=== PATIENT | female | born 1940 | race Caucasian/White ===

== ENCOUNTER 2021-02-03 13:27 | Inpatient (IN) | payer MEDICARE, SELFPAY ==
[2021-02-03] VITALS (22 sets, daily range): BP systolic 114–141; BP diastolic 62–77; PULSE 88–98; RESP 15–21; TEMP 37.3; O2SAT 90–96; BMI 23.8
--- NOTE | ~2021-02-03 | XR_ITS ---
MODIFIED ESOPHAGRAM HISTORY: Aspiration pneumonia TECHNIQUE: Modified barium esophagram was performed by speech pathologist under radiologist fluorosco pic guidance. This was recorded on tape. The exam was reviewed on 02/04/2021 11:02 OPTICAL MANAGER. The DAP fo r this procedure was 2 Gycm2. Fluoroscopy time is 4.1 minutes. One fluoroscopic image. FINDINGS: Lateral projection of the cervical spine demonstrates normal alignment. There is reduced lingual movement during oral stage. During pharyngeal stage there is reduced laryngeal elevation, add uction, tongue base retraction and pharyngeal squeeze. There is vallecular and piriform sinus residue . There is laryngeal penetration without aspiration.. IMPRESSION: 1: Laryngeal penetration without aspiration. 2: Please refer to speech pathologist report for additional detail. Reviewed, dictated and finalized at location A. CAL MANAGER
--- NOTE | ~2021-02-03 | CT_ITS ---
EXAMINATION: CT abdomen pelvis wo con DATE: 02/03/2021 14:43 INDICATION: Mild localized abdominal pain. Vomiting. TECHNIQUE: Computed tomography (CT) of the abdomen and pelvis was performed without intravenous contr ast. Automated exposure control and iterative reconstruction technique were employed. Exam dose: 564 .74 mGy-cm total exam DLP. COMPARISON: None. FINDINGS: There is patchy infiltrate in the middle and to a greater extent right lower lobe. Consider pneumonia and aspiration pneumonitis. There is a prominent band of discoid atelectasis or scarring in the right lower lobe. Cardiac pacemaker leads are noted. No pericardial or pleural effusion. Status post cholecystectomy. No hepatic, splenic, pancreatic or adrenal space-occupying mass lesion is evident. No bile duct or pa ncreatic duct dilatation. 3.8 cm exophytic left renal cyst. Small right parapelvic renal cysts. Bilateral diffuse renal atrophy . No urinary tract calculus or hydroureteronephrosis. There is calcification of the abdominal aorta. Proximal left renal artery stent. No abdominal aortic aneurysm. Prominent calcification of the iliac arteries. No intraperitoneal or retroperitoneal or pelvic mass lesion or adenopathy or ascites. The urinary bladder is unremarkable. Status post hysterectomy. Small sliding hiatal hernia. There are numerous diverticula of the colon involving predominantly the sigmoid colon. No CT evidence of diverticulitis. No bowel obstruction or intraperitoneal free air. There is diffuse osteopenia. IMPRESSION: Patchy infiltrate in middle and right lower lobe; consider pneumonia and aspiration pneu monitis Cardiac pacemaker leads Status post cholecystectomy Status post hysterectomy Renal cysts Left renal artery stent Small sliding hiatal hernia Diverticulosis of the colon; no CT evidence of diverticulitis Reviewed, dictated and finalized at Location A. Reviewed, dictated and finalized at location B. CTOR RECORDS MANAGEMENT IMPRESSION: Patchy infiltrate in middle and right lower lobe; consider pneumon ia and aspiration pneumonitis Cardiac pacemaker leads Status post cholecystectomy Status post hysterectomy Renal cysts Left renal artery stent Small sliding hiatal hernia Diverticulosis of the colon; no CT evidence of diverticulitis
--- NOTE | ~2021-02-03 | XR_ITS ---
XR chest 1V portable 02/03/2021 16:36 Indication: Aspiration pneumonia. Vomiting. Procedure: AP portable chest Comparison: No prior studies for comparison. Findings: Patchy right basilar airspace disease, compatible with pneumonia. Heart size is normal. The re are coronary artery stents. Pacemaker leads in expected position. No pleural effusion, edema or pn eumothorax. Generalized osteopenia. Impression: 1: Patchy right basilar airspace disease, compatible with pneumonia. Reviewed, dictated and finalized at location A. TION MANAGER Impression: 1: Patchy right basilar airspace disease, compatible with pneumonia.
[2021-02-03 14:00] LABS: Hematocrit 35.7 % (37.0-47.0); Hemoglobin 11.2 g/dL (12.0-15.0); Mean Corpuscular HGB Conc 31.4 g/dl (32-36); Mean Corpuscular Hemoglobin 29.5 pg (26-34); Mean Corpuscular Volume 93.9 fl (80-100); Mean Platelet Volume 9.4 fl (7.4-10.4); Platelet Count Result 218 k/mm3 (150-375); Red Cell Distribution Width 15.2 % (11.5-14.5)
[2021-02-03 14:16] LABS: Alanine Aminotransferase 25 U/L (4-35); Albumin Level 4.6 g/dL (3.5-5.1); Alkaline Phosphatase 110 U/L (38-126); Anion Gap 12 mmol/L (8-16); Aspartate Amino Transferase 32 U/L (14-36); Blood Urea Nitrogen 28 mg/dL (7-17); Calcium 9.7 mg/dL (8.4-10.2); Carbon Dioxide 20 mmol/L (22-30); Chloride 101 mmol/L (98-107); Estimated CRCL calculation 24 ml/min; Estimated Glomerular Filt Rate 27; Glucose 100 mg/dL (65-110); Lipase 170 U/L (23-300); Potassium 4.7 mmol/L (3.4-5.0); Sodium 133 mmol/L (137-145)
[2021-02-03 15:07] LABS: Anisocytosis 2+ (NORMAL); Band Neutrophils Percent 4 % (0-6); Hypochromasia 1+ (NORMAL); Lymphocytes Absolute Manual 0.17 K/mm3 (1.1-4.5); Monocytes Absolute Manual 0.68 K/mm3 (0.1-0.90); Monocytes Percent Manual 4 % (3-9); Neutrophils Absolute Manual 16.15 K/mm3 (1.7-7.2); Neutrophils Percent Manual 91 % (46-73); Platelet Estimate Adequate (Adequate); Total Cells Counted 100
[2021-02-03] MEDS: SODIUM CHLORIDE 0.9% IV 1,000 ML 999 ML IV CONT (15:15)
[2021-02-03 16:05] LABS: Add Urine Microscopic? YES; Appearance Urine Clear (Clear); Bacteria Urine Trace /hpf; Bilirubin Urine Negative (Negative); Blood Urine Negative (Negative); Color Urine Yellow (Yellow); Glucose Urine UA Negative (Negative); Ketones Urine Trace mg/dL (Negative); Leukocyte Esterase Ur Negative LEU/UL (Negative); Mucus Urine Rare /lpf; Nitrate Urine Negative (Negative); Protein Urine Negative (Negative); RBC Urine 0-2 /hpf (0-2); Specific Grav Ur 1.017 (1.001-1.035); Urobilinogen Urine Negative mg/dL (<2.0); WBC Urine 0-3 /hpf
[2021-02-03] MEDS: ONDANSETRON INJ 4 MG/2 ML VIAL IV PUSH (16:15)
--- NOTE | 2021-02-03 16:24 | ED.NAVMDI ---
HPI - Nausea/Vomiting/Diarrhea General Chief complaint: Nausea/Vomiting/Diarrhea Stated complaint: N/V, ALERT TO SELF Time Seen by Provider: 02/03/21 13:38 History of Present Illness HPI Narrative: Patient is a 80-year-old female with history of aphasia who presents ER with nausea and vomiting. Vomiting began today. Patient is also been having drops her blood sugars over the last week. It appears patient was recently started on glimepiride 4 mg but it was decreased to 2 mg couple days ago. Blood sugar as low as 30. Patient unable to provide history and it was obtained from family who is present and from EMS. Related Data Home Medications Medication Instructions Recorded Confirmed acetaminophen 650 mg PO QID PRN 02/03/21 02/03/21 albuterol sulfate 5 mg INHALATION Q4H PRN 02/03/21 02/03/21 amlodipine 5 mg PO DAILY 02/03/21 02/03/21 aspirin [Adult Aspirin EC Low 81 mg PO DAILY 02/03/21 02/03/21 Strength] calcitriol 0.25 mcg PO 3XW 02/03/21 02/03/21 clopidogrel 75 mg PO DAILY 02/03/21 02/03/21 ezetimibe 10 mg PO DAILY 02/03/21 02/03/21 fluticasone propion-salmeterol 1 inh INHALATION DAILY 02/03/21 02/03/21 furosemide 20 mg PO DAILY 02/03/21 02/03/21 lidocaine [Lidoderm] 1 patch TOPICAL DAILY 02/03/21 02/03/21 polyethylene glycol 3350 [Miralax] 17 g PO BID 02/03/21 02/03/21 sennosides [Senna Lax] 17.2 mg PO DAILY 02/03/21 02/03/21 glimepiride 2 mg PO DAILY 02/04/21 02/04/21 Allergies Allergy/AdvReac Type Severity Reaction Status Date / Time codeine Allergy Unknown Verified 02/03/21 13:37 hydrocodone Allergy Unknown Verified 02/03/21 13:37 morphine Allergy Unknown Verified 02/03/21 13:37 [id number] Reductase Allergy Unknown Verified 02/03/21 13:37 Inhibitor Review of Systems Review of Systems: ROS unobtainable: Yes unobtainable due to medical condition [facility] Past Medical History Medical History (Updated 02/04/21 @ 16:23 by Robert Laguna MD) Anemia CAD (coronary artery disease) Cardiac defibrillator in place Chronic kidney disease Compression fx, thoracic spine Congestive heart failure DM2 (diabetes mellitus, type 2) Hyperlipidemia Hypertension Surgical History Surgical History (Updated 02/03/21 @ 22:24 by Connie Quintana NP) H/O heart artery stent Family History Family History (Updated 02/03/21 @ 22:25 by Connie Quintana NP) Unknown Unknown family medical history Social History Social History (Updated 02/03/21 @ 22:26 by Connie Quintana NP) Social History: according to the patient's face sheet she is retired. She has 2 daughters listed under her contacts. She is from [place] [facility]. Patient is listed as a full code. Smoking status: Never smoker Alcohol intake: never Substance use: never Spiritual care concerns: No Exam Narrative: GENERAL: Chronically ill-appearing, well-nourished, and in no acute distress. HEAD: Normocephalic, atraumatic. ENT: Mucous membranes moist. Neck: Supple. CHEST: Clear to auscultation. No respiratory distress. HEART: Regular rate and rhythm. Normal peripheral pulses. ABDOMEN: Soft, moderate lower abdominal tenderness bilaterally, nondistended, normal active bowel sounds. EXTREMITIES: Normal range of motion. No edema. SKIN: Warm, dry, no rash. NEURO: Awake and alert, follows commands, attempts to communicate but has expressive aphasia. Course Course Emergency Course: Admit to hospitalist service. Antibiotics for aspiration pneumonia ordered. Vital Signs Vital signs: Vital Signs Pulse Rate 98 02/03/21 13:30 Respiratory Rate 18 02/03/21 13:30 Blood Pressure 141/77 H 02/03/21 13:30 Pulse Oximetry 95 02/03/21 13:30 Temperature 96.8 F L 02/04/21 14:28 Pulse Rate 83 02/04/21 14:28 Respiratory Rate 20 02/04/21 14:28 Blood Pressure 133/58 L 02/04/21 14:28 Pulse Oximetry 95 02/04/21 14:28 MDM - Nausea/Vomiting/Diarrhea Lab Data Result diagrams: 02/04/21 14:10
--- NOTE | 2021-02-03 17:00 | PC.NURSE ---
pts daughter voicing concerns that pt has been having blood sugar drops at the [facility] and that it is unusual since shes been off her diabetic meds for years. upon looking at [facility] paper noted that pt has been receiving glimiperide 4mg daily until today and as of today dose has been decreased to glimiperide 2mg daily. per family pts dr is dr kenyon. meds ordered by dr. foster. concerned about potential med error discussed with dr. wang
[2021-02-03] MEDS: AMPICILLIN SULB 3 GM/NS 100 ML 3 GM/100 ML VIAL IVPB (17:18)
--- NOTE | 2021-02-03 17:30 | PC.NURSE ---
pts daughter left department. made aware of plan of care
--- NOTE | 2021-02-03 21:33 | PC.NURSE ---
This patient, Emely Candelario, was admitted to Medical Room 345-01. Patient/family oriented to hospital policies and general routines including ID bracelet, bed and alarms, visiting hours, pain management, procedures, bathroom and other care routines, personal items, smoking policy, room service/diet, and visiting hours. Information on how to activate the Rapid Response Team has been discussed. Patient/Family are encouraged to report perceived risks to care and to ask questions if they do not understand what they are told or what they should do. Spoke with daughter to gather information for admission.
--- NOTE | 2021-02-03 21:53 | PM.IMHP ---
H&P: HPI History of Present Illness Date/Time: 02/03/21 21:53Joselyn is a 80-year-old female patient who comes from the group home. She has a history of diabetes and it was reported that the patient's blood sugars were low. According the family the patient had not been on glimepiride prior to going in the group home. The patient is aphasic and answers yes and no. The patient was more lethargic today and was brought to the emergency room. Her white count was noted to be 17.0. H&H 11.2 and 35.7. Her chest x-ray was read as patchy right basilar airspace disease compatible with pneumonia. It was felt that the patient has aspiration pneumonia. She was started on Unasyn. Abdominal pelvis CT was read as the following: Patchy infiltrate in middle and right lower lobe; consider pneumonia and aspiration pneumonitis Cardiac pacemaker leads Status post cholecystectomy Status post hysterectomy Renal cysts Left renal artery stent Small sliding hiatal hernia Diverticulosis of the colon; no CT evidence of diverticulitis sodium was 133, creatinine 1.8 and her blood sugar was noted to be 100. she was also started on IV fluids and Zofran. The patient is being admitted to observation status on the date of service of 02/03/2021. Chief Complaint: Low blood sugar Review of Systems Review of Systems: ROS unobtainable: Yes unobtainable due to mental status PMFSH Past Medical History Medical History (Updated 02/03/21 @ 22:31 by Connie Quintana NP) Anemia CAD (coronary artery disease) Cardiac defibrillator in place Chronic kidney disease Compression fx, thoracic spine Congestive heart failure DM2 (diabetes mellitus, type 2) Hyperlipidemia Hypertension Surgical History Surgical History (Updated 02/03/21 @ 22:24 by Connie Quintana NP) H/O heart artery stent Family History Family History (Updated 02/03/21 @ 22:25 by Connie Quintana NP) Unknown Unknown family medical history Social History Social History (Updated 02/03/21 @ 22:26 by Connie Quintana NP) Social History: according to the patient's face sheet she is retired. She has 2 daughters listed under her contacts. She is from [facility]. Patient is listed as a full code. Smoking status: Never smoker Alcohol intake: never Substance use: never Spiritual care concerns: No Meds Home Medications and Allergies Home Medications Medication Instructions Recorded Confirmed Type acetaminophen 650 mg PO QID PRN 02/03/21 02/03/21 History albuterol sulfate 5 mg INHALATION Q4H PRN 02/03/21 02/03/21 History amlodipine 5 mg PO DAILY 02/03/21 02/03/21 History aspirin [Adult Aspirin EC Low 81 mg PO DAILY 02/03/21 02/03/21 History Strength] calcitriol 0.25 mcg PO 3XW 02/03/21 02/03/21 History clopidogrel 75 mg PO DAILY 02/03/21 02/03/21 History ezetimibe 10 mg PO DAILY 02/03/21 02/03/21 History fluticasone propion-salmeterol 1 inh INHALATION DAILY 02/03/21 02/03/21 History furosemide 20 mg PO DAILY 02/03/21 02/03/21 History lidocaine [Lidoderm] 1 patch TOPICAL DAILY 02/03/21 02/03/21 History polyethylene glycol 3350 [Miralax] 17 g PO BID 02/03/21 02/03/21 History sennosides [Senna Lax] 17.2 mg PO DAILY 02/03/21 02/03/21 History Allergies Allergy/AdvReac Type Severity Reaction Status Date / Time codeine Allergy Unknown Verified 02/03/21 13:37 hydrocodone Allergy Unknown Verified 02/03/21 13:37 morphine Allergy Unknown Verified 02/03/21 13:37 [id number]-JyN Reductase Allergy Unknown Verified 02/03/21 13:37 Inhibitor Vital Signs Vital Signs - 24 hr 02/03/21 13:30 02/03/21 15:15 02/03/21 16:15 Temperature Pulse Rate 98 93 89 Respiratory Rate 18 19 17 Blood Pressure 141/77 H 130/66 126/70 Pulse Oximetry 95 93 95 02/03/21 17:18 02/03/21 17:30 02/03/21 17:31 Temperature Pulse Rate 91 91 90 Respiratory Rate 18 15 16 Blood Pressure 120/74 Pulse Oximetry 92 93 93 02/03/21 17:45 02/03/21 17:46
--- NOTE | 2021-02-04 | ECHO_ITS ---
Patient Info Name: Emely Candelario Age: 80 years : 1940 Gender: Female Ht: 60 in Wt: 122 lbs BSA: 1.54 m2 HR: 84 bpm BP: 150 / 71 mmHg Heart Rhythm: Sinus Rhythm, Indeterminant Technical Quality: Fair Exam Date: 02/04/2021 8:42 AM Exam Location: [facility] Patient Status: Inpatient Admit Date: 02/04/2021 Staff Ordering Physician: Connie Quintana NP Environmental Studies Faculty Member: Wilda Lindsey RDCS Attending Provider: Deya Bejarano PA-C Referring Physician: MESERET KRISHNAN ; Exam Type: CA echo doppler color flow Study Info Indications - murmur Complete two-dimensional, color flow and Doppler transthoracic echocardiogram is performed. Summary 1. Complete two-dimensional, color flow and Doppler transthoracic echocardiogram is performed. 2. Moderate left ventricular enlargement with normal left ventricular wall thickness. There was moderate global hypokinesis with more severe inferior basal hypokinesis. The visual ejection fraction is 35-40%. Grade 2 diastolic dysfunction is present. Abnormal septal motion noted perhaps secondary to a bundle branch block. 3. Left atrial chamber dimension is mildly enlarged. 4. There is trace mitral valve regurgitation. 5. There is mild tricuspid valve regurgitation. 6. Moderate pulmonary hypertension, estimated pulmonary arterial systolic pressure is 48 mmHg. 7. Rhythm indeterminate. Left Ventricle Left ventricular chamber dimension is moderately enlarged. Left ventricular systolic function is moderately reduced, estimated at 35-40%. There is no increased left ventricular wall thickness. Left ventricular septal wall motion is normal. The left ventricular diastolic function is grade II diastolic dysfunction. Right Ventricle Right ventricular chamber dimension is normal. Right ventricular systolic function is normal. Left Atria Left atrial chamber dimension is mildly enlarged. Right Atria Right atrial chamber dimension is normal. Aortic Valve The aortic valve is trileaflet. There is no aortic valve sclerosis. There is no aortic valve stenosis. There is no aortic valve regurgitation. Pulmonic Valve The pulmonic valve is normal. There is no pulmonic valve stenosis. There is no pulmonic regurgitation. Mitral Valve The mitral valve has normal leaflets. There is no mitral valve stenosis. There is trace mitral valve regurgitation. Tricuspid Valve The tricuspid valve leaflets are normal. There is no significant tricuspid valve stenosis. There is mild tricuspid valve regurgitation. Moderate pulmonary hypertension, estimated pulmonary arterial systolic pressure is 48 mmHg. Pericardium/Pleural The pericardium appears normal. There is no pericardial effusion. Inferior Vena Cava Normal inferior vena cava with >50% collapse upon inspiration consistent with Empty right atrial pressure, 10 mmHg. Aorta The aortic root size at the sinus of Valsalva is normal. The prox ascending aorta size is normal. Left Ventricular Outflow Tract Name Value Normal LVOT 2D LVOT Diameter 2.2 cm LVOT Doppler LVOT Peak Gradient 5 mmH
[2021-02-04] MEDS: AMPICILLIN SULB 3 GM/NS 100 ML 3 GM/100 ML VIAL IVPB ×2 (05:13→17:12)
[2021-02-04] MEDS: DEXTROSE 50% 25 GM/50 ML SYRINGE IV PUSH (05:13)
[2021-02-04 05:43] LABS: Basophils Percent Auto 0.1 % (0.2-1.2); Eosinophils Percent Auto 0.1 % (0-4.4); Hematocrit 27.1 % (37.0-47.0); Hemoglobin 8.3 g/dL (12.0-15.0); Immature Granulocyte Absolute 0.11 K/mm3 (0.00-0.031); Immature Granulocyte Percent A 0.8 % (0-0.5); Lymphocytes Absolute Auto 0.46 K/mm3 (0.9-3.2); Lymphocytes Percent Auto 3.5 % (18.3-44.2); Mean Corpuscular HGB Conc 30.6 g/dl (32-36); Mean Corpuscular Volume 94.8 fl (80-100); Mean Platelet Volume 9.2 fl (7.4-10.4); Monocytes Absolute Auto 0.6 K/mm3 (0.1-0.6); Monocytes Percent Auto 4.2 % (2.6-8.5); Neutrophils Absolute Auto 12.1 K/mm3 (1.3-6.7); Neutrophils Percent Auto 91.3 % (45.5-73.1); Platelet Count Result 191 k/mm3 (150-375); Red Blood Count 2.86 M/mm3 (4.2-5.4); Red Cell Distribution Width 15.4 % (11.5-14.5); White Blood Count 13.2 K/mm3 (4.5-10.0)
[2021-02-04 05:46] LABS: Glucose Point of Care < 20 mg/dl (65-105)
[2021-02-04 05:46] LABS: Glucose Point of Care 181 mg/dl (65-105)
[2021-02-04 05:53] LABS: Hemoglobin A1C 5.1 % (<5.7)
[2021-02-04 06:00] VITALS: BP 150/71; PULSE 84; RESP 18; TEMP 36.6; O2SAT 97
[2021-02-04 06:00] LABS: Alanine Aminotransferase 17 U/L (4-35); Albumin Level 3.2 g/dL (3.5-5.1); Alkaline Phosphatase 74 U/L (38-126); Anion Gap 8 mmol/L (8-16); Aspartate Amino Transferase 23 U/L (14-36); Bilirubin,Total 0.6 mg/dL (0.2-1.3); Blood Urea Nitrogen 28 mg/dL (7-17); CRP 6.2 mg/dL (<1.0); Calcium 8.7 mg/dL (8.4-10.2); Carbon Dioxide 24 mmol/L (22-30); Chloride 101 mmol/L (98-107); Estimated CRCL calculation 15 ml/min; Estimated Glomerular Filt Rate 24; Glucose 221 mg/dL (65-110); Lactate Dehydrogenase 426 U/L (313-618); Magnesium 2.2 mg/dL (1.6-2.3); Potassium 4.1 mmol/L (3.4-5.0); Sodium 133 mmol/L (137-145)
[2021-02-04] MEDS: DEXTROSE 5%/0.45% SOD CHL 1,000 ML 50 ML IV CONT (06:04)
[2021-02-04 07:14] LABS: Hypochromasia 2+ (NORMAL); Platelet Estimate Adequate (Adequate)
[2021-02-04 07:28] LABS: Glucose Point of Care 66 mg/dl (65-105)
[2021-02-04] MEDS: GLUCOSE ORAL GEL 15 GM OF GLUCSE IN 37.5 GM TUBE PO ×2 (07:40→07:58)
[2021-02-04 07:57] LABS: Glucose Point of Care 56 mg/dl (65-105)
[2021-02-04] MEDS: ASPIRIN 81 MG ENTERIC TABLET PO (08:02)
[2021-02-04] MEDS: EZETIMIBE 10 MG TABLET PO (08:02)
[2021-02-04] MEDS: FUROSEMIDE 20 MG TABLET PO (08:02)
[2021-02-04] MEDS: CLOPIDOGREL BISULFATE 75 MG TABLET PO (08:02)
[2021-02-04] MEDS: SENNOSIDES 8.6 MG TABLET 17.2 MG PO (08:02)
[2021-02-04] MEDS: amLODIPine BESYLATE 5 MG TABLET PO (08:03)
[2021-02-04] MEDS: LIDOCAINE 5% PATCH 1 PATCH TOPICAL (08:03)
[2021-02-04] MEDS: polyethylene glycoL 3350 17 GM POWD.PACK PO ×2 (08:03→16:54)
[2021-02-04 08:19] LABS: Glucose Point of Care 76 mg/dl (65-105)
[2021-02-04 08:42] VITALS: BP 135/59; PULSE 79; RESP 16; TEMP 36.4; O2SAT 98
[2021-02-04 08:49] LABS: Iron 19 ug/dL (37-170)
[2021-02-04 08:57] LABS: Transferrin 266 mg/dL (206-381)
[2021-02-04] MEDS: FLUTICASONE/SALMETEROL 115-21 MCG INHALER 1 PUFF 2 PUFF INHALATION ×2 (08:57→22:27)
[2021-02-04 09:01] LABS: Percent Iron Saturation 5 % (20-50)
[2021-02-04 09:02] LABS: Glucose Point of Care 101 mg/dl (65-105)
[2021-02-04 09:42] LABS: Hematocrit 29.2 % (37.0-47.0)
[2021-02-04 10:01] LABS: Folic Acid 4.1 ng/mL (2.76->20); Vitamin B12 > 1000.0 pg/mL (239-931)
[2021-02-04 10:59] VITALS: O2SAT 95
[2021-02-04 11:28] LABS: Glucose Point of Care 103 mg/dl (65-105)
[2021-02-04] MEDS: PANTOPRAZOLE SODIUM IV 40 MG VIAL IV PUSH ×2 (12:05→20:15)
[2021-02-04] MEDS: ACETAMINOPHEN 325 MG TABLET 650 MG PO (13:44)
[2021-02-04 14:16] LABS: Hematocrit 38.9 % (37.0-47.0); Hemoglobin 11.4 g/dL (12.0-15.0)
[2021-02-04 14:28] VITALS: BP 133/58; PULSE 83; RESP 20; TEMP 36; O2SAT 95
[2021-02-04 14:28] LABS: Anion Gap 11 mmol/L (8-16); Blood Urea Nitrogen 29 mg/dL (7-17); Calcium 9.4 mg/dL (8.4-10.2); Carbon Dioxide 21 mmol/L (22-30); Chloride 101 mmol/L (98-107); Estimated CRCL calculation 16 ml/min; Estimated Glomerular Filt Rate 26; Glucose 102 mg/dL (65-110); Sodium 133 mmol/L (137-145)
--- NOTE | 2021-02-04 15:49 | PCSTNOTE ---
Please refer to the Modified Barium Swallow Evaluation in the EMR.
--- NOTE | 2021-02-04 16:18 | PM.IMPN ---
Progress Note: A&P Assessment and Plan (1) Aspiration pneumonia: Code(s): J69.0 - Pneumonitis due to inhalation of food and vomit Status: Acute Assessment and Plan: Patient is a 80-year-old woman with a history of expressive aphasia, CAD, cardiac defibrillator, CKD, CHF, diabetes, hypertension, who presented to the emergency room from her retirement with low blood sugars and vomiting. Patient was recently started on glimepiride a few weeks ago and has had hypoglycemia episodes. Initial vitals showed blood pressure 141/77, heart rate 98, afebrile, normal oxygenation at 95% on room air. Initial labs showed leukocytosis at 17,000, elevated neutrophils at 91%, normal bands, normocytic anemia with a hemoglobin of 11, hematocrit 35, hyponatremia at 133, creatinine elevated 1.8, BUN 28, normal LFTs, normal lipase. Normal urinalysis. CT abdomen pelvis showed Patchy infiltrate in middle and right lower lobe; consider pneumonia and aspiration pneumonitis. Patient was admitted in the hospital with IV antibiotics with Unasyn for aspiration pneumonia. Further workup and evaluation for aspiration pneumonia. Blood cultures, sputum cultures. IV Unasyn day 2, leukocytosis is improving. Will recheck labs in the morning. Patient is resting comfortably on room air. Bedside evaluation was difficult to complete and they recommended a modified barium swallow which was completed in they recommend a pureed diet due to her being edentulous. She did not not show signs of aspiration. Aspiration could be secondary to her vomiting prior to arrival which could be secondary to hypoglycemia episodes Continue IV antibiotics. Continue monitoring and aspiration precautions. (2) Hypoglycemia: Code(s): E16.2 - Hypoglycemia, unspecified Status: Acute Assessment and Plan: Patient has been having episodes of hypoglycemia since admission. Her glucose this morning at 5:00 a.m. was 18. She was given D5 1/2 amp with improvement of her glucose. She was also started on IV dextrose 5%/ NS running at 50 cc/hour. Her glucose went low again at 55 so we increased her rate to 75 cc an hour. Her glucose has been stable at 100 since increasing her rate. May consider decreasing dextrose down versus continue watching every 2 hours and make adjustments if needed. Hypoglycemia most likely due to glimepiride still being in her system. Hemoglobin A1c was 5.1%. Hypoglycemic protocol in place. (3) Hypertension: Code(s): I10 - Essential (primary) hypertension Status: Chronic Assessment and Plan: Blood pressure 150/71 this morning. Continue her home medications of amlodipine and Lasix. (4) Chronic kidney disease: Code(s): N18.9 - Chronic kidney disease, unspecified Status: Chronic Assessment and Plan: Called the patient's retirement who states her labs from [address] [facility] shows a creatinine 1.6. Probably slightly dehydrated from vomiting. She is getting some IV fluids right now with dextrose and normal saline Will recheck creatinine in the morning. (5) Anemia: Code(s): D64.9 - Anemia, unspecified Status: Chronic Assessment and Plan: Call the patient's retirement who states her labs from [address] [facility] states hemoglobin of 9.0, hematocrit 29%. Labs on arrival showed H&H is 11.2 and 35.7 which I believe is secondary to some dehydration H&H repeated this morning showed hemoglobin of 9. Continue monitoring. Draw anemia labs. No acute signs of bleeding at this time. (6) Hyperlipidemia: Code(s): E78.5 - Hyperlipidemia, unspecified Status: Chronic Assessment and Plan: continue with home medications.
[2021-02-04 16:33] LABS: Glucose Point of Care 74 mg/dl (65-105)
[2021-02-04 20:00] VITALS: PULSE 83; RESP 20; O2SAT 95
[2021-02-04 22:00] VITALS: BP 121/63; PULSE 72; RESP 18; TEMP 36.2; O2SAT 96
[2021-02-05 00:38] LABS: Glucose Point of Care 155 mg/dl (65-105)
[2021-02-05 00:38] LABS: Glucose Point of Care 98 mg/dl (65-105)
[2021-02-05 00:38] LABS: Glucose Point of Care 150 mg/dl (65-105)
[2021-02-05 02:28] LABS: Glucose Point of Care 149 mg/dl (65-105)
[2021-02-05] MEDS: DEXTROSE 5%/0.45% SOD CHL 1,000 ML 75 ML IV CONT (03:30)
[2021-02-05 04:13] LABS: Glucose Point of Care 91 mg/dl (65-105)
[2021-02-05 05:53] LABS: Basophils Percent Auto 0.3 % (0.2-1.2); Eosinophils Absolute Auto 0.2 K/mm3 (0-0.3); Eosinophils Percent Auto 1.9 % (0-4.4); Hematocrit 25.9 % (37.0-47.0); Immature Granulocyte Absolute 0.03 K/mm3 (0.00-0.031); Immature Granulocyte Percent A 0.4 % (0-0.5); Lymphocytes Absolute Auto 0.89 K/mm3 (0.9-3.2); Lymphocytes Percent Auto 11.5 % (18.3-44.2); Mean Corpuscular HGB Conc 30.9 g/dl (32-36); Mean Corpuscular Hemoglobin 29.5 pg (26-34); Mean Corpuscular Volume 95.6 fl (80-100); Mean Platelet Volume 9.3 fl (7.4-10.4); Monocytes Absolute Auto 0.5 K/mm3 (0.1-0.6); Monocytes Percent Auto 6.5 % (2.6-8.5); Neutrophils Absolute Auto 6.2 K/mm3 (1.3-6.7); Neutrophils Percent Auto 79.4 % (45.5-73.1); Platelet Count Result 175 k/mm3 (150-375); Red Blood Count 2.71 M/mm3 (4.2-5.4); White Blood Count 7.7 K/mm3 (4.5-10.0)
[2021-02-05] MEDS: AMPICILLIN SULB 3 GM/NS 100 ML 3 GM/100 ML VIAL IVPB ×2 (05:54→17:20)
[2021-02-05 05:58] LABS: Anion Gap 5 mmol/L (8-16); Blood Urea Nitrogen 26 mg/dL (7-17); Calcium 8.6 mg/dL (8.4-10.2); Carbon Dioxide 24 mmol/L (22-30); Chloride 102 mmol/L (98-107); Estimated CRCL calculation 17 ml/min; Estimated Glomerular Filt Rate 27; Glucose 89 mg/dL (65-110); Potassium 3.7 mmol/L (3.4-5.0); Sodium 131 mmol/L (137-145)
[2021-02-05 06:00] VITALS: BP 125/46; PULSE 72; RESP 16; TEMP 36.4; O2SAT 96
[2021-02-05 06:13] LABS: Glucose Point of Care 85 mg/dl (65-105)
[2021-02-05] MEDS: ACETAMINOPHEN 325 MG TABLET 650 MG PO ×2 (06:16→12:13)
[2021-02-05 07:34] LABS: Glucose Point of Care 120 mg/dl (65-105)
[2021-02-05] MEDS: EZETIMIBE 10 MG TABLET PO (08:13)
[2021-02-05] MEDS: SENNOSIDES 8.6 MG TABLET 17.2 MG PO (08:13)
[2021-02-05] MEDS: CLOPIDOGREL BISULFATE 75 MG TABLET PO (08:13)
[2021-02-05] MEDS: ASPIRIN 81 MG ENTERIC TABLET PO (08:13)
[2021-02-05] MEDS: LIDOCAINE 5% PATCH 1 PATCH TOPICAL (08:14)
[2021-02-05] MEDS: FUROSEMIDE 20 MG TABLET PO (08:14)
[2021-02-05] MEDS: amLODIPine BESYLATE 5 MG TABLET PO (08:14)
[2021-02-05] MEDS: PANTOPRAZOLE SODIUM IV 40 MG VIAL IV PUSH ×2 (08:14→20:30)
[2021-02-05] MEDS: calcitrioL 0.25 MCG CAPSULE PO (08:14)
[2021-02-05] MEDS: polyethylene glycoL 3350 17 GM POWD.PACK PO ×2 (08:14→17:20)
[2021-02-05 10:20] LABS: Glucose Point of Care 135 mg/dl (65-105)
[2021-02-05] MEDS: FLUTICASONE/SALMETEROL 115-21 MCG INHALER 1 PUFF 2 PUFF INHALATION ×2 (11:12→20:06)
[2021-02-05] MEDS: DEXTROSE 5%/0.45% SOD CHL 1,000 ML 50 ML IV CONT (12:14)
[2021-02-05 12:17] LABS: Glucose Point of Care 128 mg/dl (65-105)
--- NOTE | 2021-02-05 14:05 | PM.IMPN ---
Progress Note: A&P Assessment and Plan (1) Aspiration pneumonia: Code(s): J69.0 - Pneumonitis due to inhalation of food and vomit Status: Acute Assessment and Plan: Patient is a 80-year-old woman with a history of expressive aphasia, CAD, cardiac defibrillator, CKD, CHF, diabetes, hypertension, who presented to the emergency room from her correction with low blood sugars and vomiting. Patient was recently started on glimepiride a few weeks ago and has had hypoglycemia episodes. Initial vitals showed blood pressure 141/77, heart rate 98, afebrile, normal oxygenation at 95% on room air. Initial labs showed leukocytosis at 17,000, elevated neutrophils at 91%, normal bands, normocytic anemia with a hemoglobin of 11, hematocrit 35, hyponatremia at 133, creatinine elevated 1.8, BUN 28, normal LFTs, normal lipase. Normal urinalysis. CT abdomen pelvis showed Patchy infiltrate in middle and right lower lobe; consider pneumonia and aspiration pneumonitis. Patient was admitted in the hospital with IV antibiotics with Unasyn for aspiration pneumonia. Further workup and evaluation for aspiration pneumonia. Blood cultures, sputum cultures. IV Unasyn day #3, leukocytosis normalized today. Will recheck labs in the morning. Patient is resting comfortably on room air. Bedside evaluation was difficult to complete and they recommended a modified barium swallow which was completed in they recommend a pureed diet due to her being edentulous. She did not not show signs of aspiration. Aspiration could be secondary to her vomiting prior to arrival which could be secondary to hypoglycemia episodes Continue IV antibiotics. Continue monitoring and aspiration precautions. (2) Hypoglycemia: Code(s): E16.2 - Hypoglycemia, unspecified Status: Acute Assessment and Plan: Patient has been having episodes of hypoglycemia since admission. 02/04/21: Her glucose this morning at 5:00 a.m. was 18. She was given D5 1/2 amp with improvement of her glucose. She was also started on IV dextrose 5%/ NS running at 50 cc/hour. Her glucose went low again at 55 so we increased her rate to 75 cc an hour. Her glucose has been stable at 100 since increasing her rate. 02/05/21: Glucose stable today, decreased to 50 cc/hr and glucoses remained stable. Discontinued Dextrose drip. Continue monitoring glucoses Q2hrs until stable off dextrose drip. Hypoglycemia most likely due to glimepiride still being in her system. Hemoglobin A1c was 5.1%. Hypoglycemic protocol in place. (3) Pain: Code(s): R52 - Pain, unspecified Status: Acute Assessment and Plan: Patient is poor historian due to expressive aphasia and intermittently tearful during my encounter. I called the patient's daughter who states that the patient does often began crying because of her expressive aphasia and people not understanding what she is trying to say. She did say when she visited earlier today that the patients granddaughter wrote on a piece of paper ?are you in pain, with a yes or a no? the patient has circled the ?yes?. The patient has multiple allergies to codeine, hydrocodone, morphine. I talked to the patient's daughter who states she is unsure of the allergic reaction she had to these medications. I told her there is not much else we can give for pain because of these allergies. Told her we will try Flexeril in case she is having muscle spasms. But will otherwise continue with Tylenol and heating pad. Continue monitoring. (4) Compression fracture of T5 vertebra: Code(s): S22.050A - Wedge compression fracture of T5-T6 vertebra, initial encounter for closed fracture Status: Acute Assessment and Plan: Patient was at [facility] on 01/25/2020 - 01/29/2021 after sustaining a fall in her bathtub. She was
[2021-02-05 14:32] LABS: Glucose Point of Care 140 mg/dl (65-105)
[2021-02-05 14:45] VITALS: BP 142/55; PULSE 79; RESP 20; TEMP 36.5; O2SAT 100
[2021-02-05 14:51] LABS: Hemoglobin 8.6 g/dL (12.0-15.0)
[2021-02-05] MEDS: CYCLOBENZAPRINE HCL 10 MG TABLET PO ×2 (14:52→21:25)
[2021-02-05 16:30] LABS: Glucose Point of Care 109 mg/dl (65-105)
[2021-02-05 17:59] LABS: Glucose Point of Care 128 mg/dl (65-105)
[2021-02-05 20:00] VITALS: PULSE 81; RESP 12; O2SAT 95
[2021-02-05 20:05] VITALS: PULSE 78; RESP 18
[2021-02-05 20:37] VITALS: PULSE 81; RESP 12; TEMP 36.1; O2SAT 95
[2021-02-05 22:12] LABS: Glucose Point of Care 88 mg/dl (65-105)
[2021-02-05 22:44] VITALS: BP 151/57; PULSE 81; RESP 16; TEMP 36.2; O2SAT 95
[2021-02-06 02:54] LABS: Glucose Point of Care 104 mg/dl (65-105)
[2021-02-06] MEDS: AMPICILLIN SULB 3 GM/NS 100 ML 3 GM/100 ML VIAL IVPB (05:09)
[2021-02-06 05:40] VITALS: BP 141/70; PULSE 90; RESP 12; TEMP 35.9; O2SAT 97
[2021-02-06 06:18] LABS: Glucose Point of Care 70 mg/dl (65-105)
[2021-02-06 06:37] LABS: Anion Gap 6 mmol/L (8-16); Blood Urea Nitrogen 26 mg/dL (7-17); Calcium 8.7 mg/dL (8.4-10.2); Carbon Dioxide 26 mmol/L (22-30); Chloride 104 mmol/L (98-107); Estimated CRCL calculation 19 ml/min; Estimated Glomerular Filt Rate 31; Glucose 77 mg/dL (65-110); Potassium 4.2 mmol/L (3.4-5.0); Sodium 136 mmol/L (137-145)
[2021-02-06 06:40] LABS: Hematocrit 26.5 % (37.0-47.0); Hemoglobin 8.3 g/dL (12.0-15.0); Mean Corpuscular HGB Conc 31.3 g/dl (32-36); Mean Corpuscular Hemoglobin 29.4 pg (26-34); Mean Platelet Volume 9.2 fl (7.4-10.4); Platelet Count Result 191 k/mm3 (150-375); Red Blood Count 2.82 M/mm3 (4.2-5.4); Red Cell Distribution Width 14.8 % (11.5-14.5); White Blood Count 6.7 K/mm3 (4.5-10.0)
[2021-02-06 06:58] LABS: Glucose Point of Care 89 mg/dl (65-105)
[2021-02-06] MEDS: amLODIPine BESYLATE 5 MG TABLET PO (08:02)
[2021-02-06] MEDS: polyethylene glycoL 3350 17 GM POWD.PACK PO (08:02)
[2021-02-06] MEDS: PANTOPRAZOLE SODIUM IV 40 MG VIAL IV PUSH (08:02)
[2021-02-06] MEDS: CLOPIDOGREL BISULFATE 75 MG TABLET PO (08:02)
[2021-02-06] MEDS: ASPIRIN 81 MG ENTERIC TABLET PO (08:02)
[2021-02-06] MEDS: EZETIMIBE 10 MG TABLET PO (08:02)
[2021-02-06] MEDS: LIDOCAINE 5% PATCH 1 PATCH TOPICAL (08:02)
[2021-02-06] MEDS: FUROSEMIDE 20 MG TABLET PO (08:02)
[2021-02-06] MEDS: SENNOSIDES 8.6 MG TABLET 17.2 MG PO (08:02)
[2021-02-06] MEDS: CYCLOBENZAPRINE HCL 10 MG TABLET PO (08:06)
[2021-02-06 11:54] LABS: Glucose Point of Care 112 mg/dl (65-105)
--- NOTE | 2021-02-06 12:59 | PM.DS ---
DS: Admitting Diagnosis Discharge Date 02/06/21 Admitting Diagnosis Vomiting DS: Discharge Diagnosis Discharge Diagnosis (1) Aspiration pneumonia: Code(s): J69.0 - Pneumonitis due to inhalation of food and vomit Status: Acute Assessment and Plan: Patient is a 80-year-old woman with a history of expressive aphasia, CAD, cardiac defibrillator, CKD, CHF, diabetes, hypertension, who presented to the emergency room from her fdc with low blood sugars and vomiting. Patient was recently started on glimepiride a few weeks ago and has had hypoglycemia episodes. Initial vitals showed blood pressure 141/77, heart rate 98, afebrile, normal oxygenation at 95% on room air. Initial labs showed leukocytosis at 17,000, elevated neutrophils at 91%, normal bands, normocytic anemia with a hemoglobin of 11, hematocrit 35, hyponatremia at 133, creatinine elevated 1.8, BUN 28, normal LFTs, normal lipase. Normal urinalysis. CT abdomen pelvis showed Patchy infiltrate in middle and right lower lobe; consider pneumonia and aspiration pneumonitis. Patient was admitted in the hospital with IV antibiotics with Unasyn for aspiration pneumonia. Further workup and evaluation for aspiration pneumonia. Blood cultures, sputum cultures. IV Unasyn day #4, leukocytosis normalized today. Patient is resting comfortably on room air. Bedside evaluation was difficult to complete and they recommended a modified barium swallow which was completed in they recommend a pureed diet due to her being edentulous. She did not not show signs of aspiration. Aspiration could be secondary to her vomiting prior to arrival which could be secondary to hypoglycemia episodes She is doing better at this time and stable for discharge back to SNF. (2) Hypoglycemia: Code(s): E16.2 - Hypoglycemia, unspecified Status: Acute Assessment and Plan: Patient has been having episodes of hypoglycemia since admission. 02/04/21: Her glucose this morning at 5:00 a.m. was 18. She was given D5 1/2 amp with improvement of her glucose. She was also started on IV dextrose 5%/ NS running at 50 cc/hour. Her glucose went low again at 55 so we increased her rate to 75 cc an hour. Her glucose has been stable at 100 since increasing her rate. 02/05/21: Glucose stable today, decreased to 50 cc/hr and glucoses remained stable. Discontinued Dextrose drip. Continue monitoring glucoses Q2hrs until stable off dextrose drip. 02/06/21: Glucose has been stable without any hypoglycemia. Patient eating well. (3) Pain: Code(s): R52 - Pain, unspecified Status: Acute Assessment and Plan: Patient is poor historian due to expressive aphasia and intermittently tearful during my encounter. I called the patient's daughter who states that the patient does often began crying because of her expressive aphasia and people not understanding what she is trying to say. She did say when she visited earlier today that the patients granddaughter wrote on a piece of paper ?are you in pain, with a yes or a no? the patient has circled the ?yes?. The patient has multiple allergies to codeine, hydrocodone, morphine. I talked to the patient's daughter who states she is unsure of the allergic reaction she had to these medications. I told her there is not much else we can give for pain because of these allergies. Told her we will try Flexeril in case she is having muscle spasms. But will otherwise continue with Tylenol and heating pad. Believe patient is doing well at this time. Cannot tell if Flexeril is working but patients daughter cannot figure out if this is her chronic frustration from asphasia vs pain. Talked with daughter and she agrees with the plan at this time. (4) Compression fracture of T5 vertebra: Code(s): S22.050A - Wedge compre
[2021-02-06 14:19] LABS: EDCOVIDSCREEN Negative (Negative)
== END 2021-02-06 16:24 | DRG 194 ==
LOC: ANHED 14:00 → ANH3MED 18:50
PROVIDERS: Nurse Practitioner; Physician Assistant; Admitting Provider Family Medicine; Emergency Provider Emergency Medicine; PCP Internal Medicine; Visit Provider Internal Medicine
DX: J18.9 Pneumonia, unspecified organism (principal); I13.0 Hypertensive heart and chronic kidney disease with heart failure and stage 1 through stage 4 chronic kidney disease, or unspecified chronic kidney disease; R47.01 Aphasia; Z20.822 Contact with and (suspected) exposure to COVID-19; E11.649 Type 2 diabetes mellitus with hypoglycemia without coma; E11.22 Type 2 diabetes mellitus with diabetic chronic kidney disease; N18.9 Chronic kidney disease, unspecified; I50.9 Heart failure, unspecified; D64.9 Anemia, unspecified; E87.5 Hyperkalemia; I25.10 Atherosclerotic heart disease of native coronary artery without angina pectoris; R52 Pain, unspecified; S22.050D Wedge compression fracture of T5-T6 vertebra, subsequent encounter for fracture with routine healing; W18.2XXD Fall in (into) shower or empty bathtub, subsequent encounter; Z79.899 Other long term (current) drug therapy; Z88.5 Allergy status to narcotic agent; Z95.5 Presence of coronary angioplasty implant and graft; Z95.810 Presence of automatic (implantable) cardiac defibrillator
CPT/HCPCS: 36415; 71045; 74176; 80048; 80053; 81001; 82607; 82728; 82746; 82948; 83036; 83540; 83550; 83615; 83690; 83735; 84443; 84466; 85014; 85018; 85025; 85027; 86140; 87040; 87426; 92526; 92611; 93306; 94640; 96361; 96365; 96366; 96375; 97110; 97161; 97165; 97530; 97535; 99285; A9270; C9113; C9803; G0378; J0295; J1756; J2405; J7030

== ENCOUNTER 2021-09-04 21:33 | Inpatient (IN) | payer MEDICARE, SELFPAY ==
[2021-09-04] VITALS (14 sets, daily range): BP systolic 133–161; BP diastolic 74–91; PULSE 91–126; RESP 17–34; TEMP 36.9; O2SAT 76–100
--- NOTE | ~2021-09-04 | CT_ITS ---
EXAMINATION: CTA brain DATE: 09/04/2021 22:37 INDICATION: Cerebrovascular accident. TECHNIQUE: Computed tomographic angiography (CTA) of the head was performed with 100 mL Omnipaque 300 intravenous contrast. Automated exposure control and iterative reconstruction technique were employe d. The dose-length product was 393.83 mGy-cm. Maximum intensity projection 3D reconstructions were c reated. Volume-rendered 3D reconstructions of the intracranial arteries were created by the technolog ist on a separate workstation. COMPARISON: Head CT 09/04/2021 FINDINGS: There is no intracranial hemorrhage, acute infarction, or abnormal intracranial mass lesion . The ventricles are normal in size. There is mild mucosal thickening in the paranasal sinuses. There are likely changes of ocular lens replacement surgeries. The mastoid air cells are normal. The verte bral arteries are codominant. There is no significant stenosis of basilar artery or the posterior cer ebral arteries. There is no significant stenosis of the intracranial internal carotid arteries or ant erior or middle cerebral arteries. Anterior communicating artery is normal. The posterior communicati ng arteries are normal. There is no aneurysm. IMPRESSION: 1. No aneurysm or significant intracranial arterial stenosis. Reviewed, dictated and finalized at location A.
--- NOTE | ~2021-09-04 | XR_ITS ---
EXAMINATION: XR chest 1V portable DATE: 09/04/2021 21:45 INDICATION: Stroke. TECHNIQUE: A single frontal view of the chest was obtained on 2 radiographs. COMPARISON: Chest single view 02/03/2021, CT abdomen and pelvis 02/03/2021 FINDINGS: There are mild airspace opacities in right midlung zone. No pleural effusion or pneumothora x. The heart size is normal. There is a left chest pacer/defibrillator with leads in right atrium and right ventricle. Surgical clips in the right upper quadrant are likely from cholecystectomy. IMPRESSION: 1. Mild airspace opacities in right midlung zone, consistent with atelectasis/scarring versus pneumon ia. Reviewed, dictated and finalized at location A. IMPRESSION: 1. Mild airspace opacities in right midlung zone, consistent with atelectasis/s carring versus pneumonia.
--- NOTE | ~2021-09-04 | XR_ITS ---
MODIFIED ESOPHAGRAM HISTORY: Aspiration pneumonia. TECHNIQUE: Modified barium esophagram was performed by speech pathologist under radiologist fluorosco pic guidance. This was recorded on tape. The exam was reviewed on 09/06/2021 11:42 CDT. The DAP for this procedure was 2.8 Gycm2. Fluoroscopy time is 4.7 minutes. FINDINGS: Lateral projection of the cervical spine demonstrates normal alignment. There is reduced laryngeal elevation, laryngeal adduction and pharyngeal squeeze. There is residue in the vallecula, p iriform sinus and pharyngeal wall. There is laryngeal penetration with silent aspiration.. IMPRESSION: 1: Multiple episodes of laryngeal penetration with silent aspiration. 2: Please refer to speech pathologist report for additional detail. Reviewed, dictated and finalized at location A.
--- NOTE | ~2021-09-04 | XR_ITS ---
EXAMINATION: XR chest 1V portable DATE: 09/08/2021 05:43 INDICATION: Pneumonia TECHNIQUE: frontal view of the chest was obtained. COMPARISON: Chest radiograph dated 09/04/2020 FINDINGS: Persistent subtle opacities in the right mid and lower lung zones. Left paracardial fat pad obscuring the apex of the heart and with mild associated left basilar atelectasis. No pleural effusion or pneu mothorax. The cardiomediastinal silhouette is normal. Coronary artery stenting. Dual lead pacemaker/A ICD seen with leads projecting over the expected locations of the right atrium and right ventricle. C holecystectomy clips in right upper quadrant. Old left-sided rib fractures. IMPRESSION: 1. Persistent opacities in the right mid and lower lung zones which could represent atelectasis/scarr ing or pneumonia. Reviewed, dictated and finalized at location A. IMPRESSION: 1. Persistent opacities in the right mid and lower lung zones which could repre sent atelectasis/scarring or pneumonia.
--- NOTE | ~2021-09-04 | CT_ITS ---
EXAMINATION: CT brain wo con DATE: 09/04/2021 21:39 INDICATION: Stroke. TECHNIQUE: Computed tomography (CT) of the head was performed without intravenous contrast. The mA wa s adjusted according to patient size. Iterative reconstruction technique was employed. The dose-lengt h product was 605.33 mGy-cm. COMPARISON: None FINDINGS: There is diffuse brain volume loss. There are scattered areas of low attenuation in the cer ebral white matter, which is within normal limits for the patient's age. There is no intracranial hem orrhage, acute infarction, or abnormal intracranial mass lesion. The ventricles are normal in size. T here are likely changes of ocular lens replacement surgeries. The mastoid air cells are normal. There is mild mucosal thickening in the paranasal sinuses. IMPRESSION: 1. Normal aging brain. I called this result to Dr. Kaplan. Reviewed, dictated and finalized at location A.
--- NOTE | ~2021-09-04 | XR_ITS ---
EXAMINATION: XR chest 1V portable DATE: 09/14/2021 09:15 INDICATION: Possible tube feeding aspiration TECHNIQUE: frontal view of the chest was obtained. COMPARISON: Chest radiograph dated 09/08/2021 FINDINGS: Increasing gradient of hazy basilar predominant airspace opacities throughout the bilateral mid and l ower lung zones consistent with posterior layering small bilateral pleural effusions. Increased retro cardiac opacity at the left lower lung zone and increasing patchy airspace opacities in the right mid and lower lung zones. No pneumothorax. The cardiomediastinal silhouette is normal. Coronary artery s tenting. Dual lead pacemaker/AICD seen with leads projecting over the expected locations of the right atrium and right ventricle. IMPRESSION: 1. Increasing airspace opacities in the right mid and lower and left lower lung zones which could rep resent atelectasis or pneumonia. 2. Increasing small bilateral pleural effusions. Reviewed, dictated and finalized at location A. IMPRESSION: 1. Increasing airspace opacities in the right mid and lower and left lower lung zones which could represent atelectasis or pneumonia. 2. Increasing small bilateral pleural effusions.
--- NOTE | ~2021-09-04 | XR_ITS ---
EXAMINATION: XR abdomen NG/feed tube insert DATE: 09/07/2021 13:33 INDICATION: Nasogastric tube placement TECHNIQUE: A supine view of the abdomen and lower chest was obtained for evaluation of feeding tube placement. COMPARISON: None. FINDINGS: The weighted tip of a Dobbhoff type nasoenteric feeding tube is seen within the body of the stomach. Small amount of oral contrast material in the left upper quadrant likely within the splenic flexure o f the colon and likely related to an earlier modified swallow study. Cholecystectomy clips in right u pper quadrant. New mild opacities at the left lung base along with persistent mild airspace opacities in the right midlung zone either which could represent atelectasis/scarring or pneumonia. Heart size is normal. Coronary artery stenting. Dual lead pacemaker/AICD seen with leads projecting over the ex pected locations of the right atrium and right ventricle. IMPRESSION: 1. Dobbhoff type nasoenteric feeding tube tip in the body of the stomach. 2. Opacities in the right mid and left lower lung zones which could represent atelectasis/scarring or pneumonia. Reviewed, dictated and finalized at location A. IMPRESSION: 1. Dobbhoff type nasoenteric feeding tube tip in the body of the stomach. 2. Opacities in the right mid and left lower lung zones which could represent a telectasis/scarring or pneumonia.
--- NOTE | ~2021-09-04 | XR_ITS ---
XR abdomen/kub 1V 09/12/2021 13:55 Indication: J-tube placement Procedure: KUB Comparison: 09/07/2021 Findings: There is a G-tube overlying the stomach. Bowel gas pattern nonobstructive. Residual barium noted in the colon with multiple colonic diverticula. There are cholecystectomy clips. Nonobstructive bowel gas pattern. Impression: 1: G-tube overlies the stomach. Reviewed, dictated and finalized at location A. Impression: 1: G-tube overlies the stomach.
--- NOTE | 2021-09-04 21:33 | ECG_ITS ---
Measurements Intervals [place] Rate: 111 P: 44 OK: 162 QRS: -49 QRSD: 114 T: 117 QT: 349 QTc: 474 Interpretive Statements SINUS TACHYCARDIA LEFT ANTERIOR FASCICULAR BLOCK LEFT VENTRICULAR HYPERTROPHY AND ST-T [place] ANTEROSEPTAL INFARCT, AGE INDETERMINATE BASELINE ARTIFACT- I, II, III, AVR, AVL, AVF ABNORMAL ECG Electronically Signed On 09-05-2021 8:44:11 CDT by Mahin Manuel D.O.
--- NOTE | 2021-09-04 21:41 | ED.GENADULT ---
HPI - General Adult General Chief complaint: Suspected CVA Stated complaint: CVA History of Present Illness HPI narrative: 81-year-old female presenting to the emergency department from home for evaluation of cute onset of nausea vomiting, rigors and change in mental status. Patient does have a prior history of aphasia and right-sided stroke. Patient does have baseline deficit of the right upper extremity per family. Family states that at baseline patient does not communicate verbally. Family states that about 30 minutes prior to arrival the patient had onset of rigors with associated nausea and vomiting and a large bowel movement. In route to the emergency department by EMS, EMS was concerned about the right-sided deficit and called a code stroke. Family confirms that neurologically the patient is at her baseline. They state the patient is only ANO x1, does sometimes communicate by written notes. Patient has right-sided deficit and is aphasic at her baseline. Related Data Home Medications Medication Instructions Recorded Confirmed acetaminophen 650 mg tablet 650 mg PO QID PRN Pain 02/03/21 02/03/21 albuterol sulfate 5 mg/mL(0.5 %) 5 mg inhalation Q4H PRN Shortness 02/03/21 02/03/21 solution for nebulization Of Breath Or Wheezing amlodipine 5 mg tablet 5 mg PO DAILY 02/03/21 02/03/21 aspirin 81 mg tablet,delayed 81 mg PO DAILY 02/03/21 02/03/21 release calcitriol 0.25 mcg capsule 0.25 mcg PO 3XW 02/03/21 02/03/21 clopidogrel 75 mg tablet 75 mg PO DAILY 02/03/21 02/03/21 ezetimibe 10 mg tablet 10 mg PO DAILY 02/03/21 02/03/21 fluticasone 250 mcg-salmeterol 50 1 inh inhalation DAILY 02/03/21 02/03/21 mcg/dose blistr powdr for inhalation furosemide 20 mg tablet 20 mg PO DAILY 02/03/21 02/03/21 lidocaine 5 % topical patch 1 patch topical DAILY 02/03/21 02/03/21 (Lidoderm) polyethylene glycol 3350 17 17 g PO BID 02/03/21 02/03/21 gram/dose oral powder (Miralax) sennosides 8.6 mg tablet (Senna 17.2 mg PO DAILY 02/03/21 02/03/21 Lax) Allergies Allergy/AdvReac Type Severity Reaction Status Date / Time codeine Allergy Unknown Verified 02/03/21 13:37 hydrocodone Allergy Unknown Verified 02/03/21 13:37 morphine Allergy Unknown Verified 02/03/21 13:37 [id number]-[id number] Reductase Allergy Unknown Verified 02/03/21 13:37 Inhibitor Review of Systems Review of Systems: ROS unobtainable: Yes unobtainable due to medical condition PMFSH Past Medical History Medical History (Updated 09/05/21 @ 01:26 by Gilberto Kaplan MD) Anemia CAD (coronary artery disease) Cardiac defibrillator in place Chronic kidney disease Compression fx, thoracic spine Congestive heart failure DM2 (diabetes mellitus, type 2) Hyperlipidemia Hypertension Surgical History Surgical History (Updated 02/03/21 @ 22:24 by Connie Quintana NP) H/O heart artery stent Family History Family History (Updated 02/03/21 @ 22:25 by Connie Quintana NP) Unknown Unknown family medical history Social History Social History (Updated 02/03/21 @ 22:26 by Connie Quintana NP) Social History: according to the patient's face sheet she is retired. She has 2 daughters listed under her contacts. She is from [facility]. Patient is listed as a full code. Smoking status: Never smoker Alcohol intake: never Substance use: never Spiritual care concerns: No Exam Narrative: APPEARANCE: Well appearing HEAD: normocephalic, atraumatic. EYES: PERRLA/EOMI, conjunctivae clear. NOSE: Normal no drainage NECK: Supple. No adenopathy, no masses. RESPIRATORY: Airway patent, respirations nonlabored. Clear to auscultation bilaterally, no rales, rhonchi, wheezing. CARDIOVASCULAR: Regular rate and rhythm without murmurs rubs or gallops. ABDOMINAL: Soft, nontender, nondistended, normal bowel sounds MUSCULOSKELETAL: Moves all extremities. Strength/ROM intact, No edema, No calf tenderness. NEURO: Alert. Cranial nerves II through
[2021-09-04 21:43] LABS: Basophils Absolute Auto 0.1 K/mm3 (0.0-0.1); Basophils Percent Auto 0.4 % (0.2-1.2); Eosinophils Absolute Auto 0.1 K/mm3 (0-0.3); Eosinophils Percent Auto 0.5 % (0-4.4); Hematocrit 35.8 % (37.0-47.0); Hemoglobin 11.8 g/dL (12.0-15.0); Immature Granulocyte Absolute 0.08 K/mm3 (0.00-0.031); Immature Granulocyte Percent A 0.6 % (0-0.5); Lymphocytes Absolute Auto 0.46 K/mm3 (0.9-3.2); Lymphocytes Percent Auto 3.5 % (18.3-44.2); Mean Corpuscular Hemoglobin 33.5 pg (26-34); Mean Corpuscular Volume 101.7 fl (80-100); Monocytes Absolute Auto 0.2 K/mm3 (0.1-0.6); Monocytes Percent Auto 1.2 % (2.6-8.5); Neutrophils Absolute Auto 12.3 K/mm3 (1.3-6.7); Neutrophils Percent Auto 93.8 % (45.5-73.1); Platelet Count Result 170 k/mm3 (150-375); Red Blood Count 3.52 M/mm3 (4.2-5.4); Red Cell Distribution Width 13.4 % (11.5-14.5); White Blood Count 13.1 K/mm3 (4.5-10.0)
[2021-09-04 21:53] LABS: Alanine Aminotransferase 12 U/L (6-35); Alkaline Phosphatase 95 U/L (38-126); Anion Gap 7 mmol/L (8-16); Aspartate Amino Transferase 24 U/L (14-36); Bilirubin,Total 0.7 mg/dL (0.2-1.3); Blood Urea Nitrogen 27 mg/dL (7-17); Calcium 8.9 mg/dL (8.4-10.2); Carbon Dioxide 25 mmol/L (22-30); Chloride 104 mmol/L (98-107); Estimated Glomerular Filt Rate 39; Glucose 225 mg/dL (65-110); Sodium 136 mmol/L (137-145)
[2021-09-04 21:57] LABS: INR 1.1; Prothrombin Time 13.6 Seconds (11.1-14.7)
[2021-09-04 21:58] LABS: Partial Thromboplastin Time 26.5 SECONDS (22.3-36.8)
[2021-09-04 22:04] LABS: Troponin I 0.021 ng/mL (0.000-0.034)
[2021-09-04] MEDS: ONDANSETRON INJ 4 MG/2 ML VIAL IV PUSH (22:04)
[2021-09-05] VITALS (17 sets, daily range): BP systolic 105–134; BP diastolic 55–71; PULSE 80–115; RESP 16–23; TEMP 36.6–38.1; O2SAT 93–98
[2021-09-05] MEDS: ALBUTEROL SULFATE NEB 2.5 MG/3 ML INH 5 MG INHALATION (00:06)
[2021-09-05 00:15] LABS: SARS-CoV-2 RNA PCR Negative
[2021-09-05 01:41] LABS: Appearance Urine Clear (Clear); Bilirubin Urine Negative (Negative); Blood Urine Negative (Negative); Color Urine Yellow (Yellow); Glucose Urine UA Negative (Negative); Ketones Urine Negative (Negative); Leukocyte Esterase Ur Negative LEU/UL (Negative); Nitrate Urine Negative (Negative); Protein Urine Negative (Negative); Urobilinogen Urine 0.2 mg/dL (<2.0); pH Urine 5.5 (5.0-9.0)
[2021-09-05 01:48] LABS: Mucus Urine Rare /lpf; RBC Urine 0-2 /hpf (0-2); Squamous Epithelial Cell Urine Rare /hpf (Few)
[2021-09-05 01:49] LABS: Add Urine Microscopic? NO
--- NOTE | 2021-09-05 02:25 | PC.NURSE ---
This patient, Emely Candelario, was admitted to [address] [place] [address] Room 300-01. Patient/family oriented to hospital policies and general routines including ID bracelet, bed and alarms, visiting hours, pain management, procedures, bathroom and other care routines, personal items, smoking policy, room service/diet, and visiting hours. Information on how to activate the Rapid Response Team has been discussed. Patient/Family are encouraged to report perceived risks to care and to ask questions if they do not understand what they are told or what they should do.
--- NOTE | 2021-09-05 03:19 | PM.IMHP ---
H&P: HPI History of Present Illness Date/Time: 09/05/21 03:19 Chief Complaint: nausea vomiting, change in mental status Narrative: Patient is an 81-year-old female with past medical history of CVA with deficits of aphasia and right-sided weakness, CAD, essential hypertension, CKD, chronic anemia, congestive heart failure reduced EF 35-40% and grade 2 diastolic dysfunction status post defibrillator, type 2 diabetes who presents to ED with nausea vomiting altered mental status. Patient at baseline is aphasic and has right-sided weakness, which was unclear to EMS originally. Patient presented as CVA, however patient appears to be at baseline post stroke deficits. in the ED: Patient has had 2 episodes of emesis. she was found to be tachycardic. EKG shows sinus tachycardia. chest x-ray concerning for right midlung pneumonia or atelectasis. negative CT head noncontrast. She has a mild leukocytosis at 13,000, creatinine 1.3. Patient seen have possible aspiration pneumonia with her emesis and right mid lung findings. patient to be admitted for observation for Community-acquired pneumonia versus aspiration pneumonia. Review of Systems Review of Systems: Unable to obtain due to mental status, nonverbal baseline [facility] Past Medical History Medical History Anemia CAD (coronary artery disease) Cardiac defibrillator in place Chronic kidney disease Compression fx, thoracic spine Congestive heart failure DM2 (diabetes mellitus, type 2) Hyperlipidemia Hypertension Surgical History Surgical History H/O heart artery stent Family History Family History Unknown Unknown family medical history Social History Social History Social History: according to the patient's face sheet she is retired. She has 2 daughters listed under her contacts. She is from [facility]. Patient is listed as a full code. Smoking status: Never smoker Alcohol intake: never Substance use: never Spiritual care concerns: No Meds Home Medications and Allergies Home Medications Medication Instructions Recorded Confirmed Type acetaminophen 650 mg tablet 650 mg PO QID PRN Pain 02/03/21 02/03/21 History albuterol sulfate 5 mg/mL(0.5 %) 5 mg inhalation Q4H PRN Shortness 02/03/21 02/03/21 History solution for nebulization Of Breath Or Wheezing aspirin 81 mg tablet,delayed 81 mg PO DAILY 02/03/21 02/03/21 History release calcitriol 0.25 mcg capsule 0.25 mcg PO 3XW 02/03/21 02/03/21 History furosemide 20 mg tablet 20 mg PO DAILY 02/03/21 02/03/21 History sennosides 8.6 mg tablet (Senna 17.2 mg PO DAILY 02/03/21 02/03/21 History Lax) ferrous sulfate 324 mg (65 mg 324 mg PO BID #60 tabs 02/06/21 Rx iron) tablet,delayed release pantoprazole 40 mg tablet,delayed 40 mg PO DAILY 09/05/21 09/05/21 History release sertraline 25 mg tablet 25 mg PO DAILY 09/05/21 09/05/21 History Allergies Allergy/AdvReac Type Severity Reaction Status Date / Time codeine Allergy Unknown Verified 02/03/21 13:37 hydrocodone Allergy Unknown Verified 02/03/21 13:37 morphine Allergy Unknown Verified 02/03/21 13:37 Srtsudw-LWT-CpZ Reductase Allergy Unknown Verified 02/03/21 13:37 Inhibitor Vital Signs Vital Signs - 24 hr 09/04/21 21:55 09/04/21 21:55 09/04/21 22:46 Temperature 36.9 C Pulse Rate 103 H Respiratory Rate 18 Blood Pressure 158/76 H Pulse Oximetry 76 L 95 92 Oxygen Delivery Room Air Nasal Cannula Nasal Cannula Oxygen Flow Rate 5.0 2.0 09/05/21 00:06 09/05/21 00:17 09/04/21 21:58 Temperature Pulse Rate 95 115 H 103 H Respiratory Rate 22 H 23 H 18 Blood Pressure Pulse Oximetry 92 Oxygen Delivery Oxygen Flow Rate 09/04/21 22:20
[2021-09-05] MEDS: SODIUM CHLORIDE 0.9% IV 1,000 ML 100 ML IV CONT ×2 (03:45→17:02)
[2021-09-05] MEDS: ACETAMINOPHEN 325 MG TABLET 650 MG PO (06:12)
[2021-09-05] MEDS: metroNIDAZOLE 500 MG/ISO 100ML 500 MG/100 ML BAG 100 MG IVPB ×2 (09:19→17:05)
[2021-09-05] MEDS: SENNOSIDES 8.6 MG TABLET 17.2 MG PO (09:22)
[2021-09-05] MEDS: ASPIRIN 81 MG ENTERIC TABLET PO (09:23)
[2021-09-05] MEDS: SERTRALINE HCL 25 MG TABLET PO (09:23)
[2021-09-05] MEDS: FERROUS SULFATE 324 MG TABLET PO ×2 (09:23→17:03)
[2021-09-05] MEDS: calcitrioL 0.25 MCG CAPSULE PO (09:23)
[2021-09-05] MEDS: PANTOPRAZOLE 40 MG TABLET PO (09:23)
--- NOTE | 2021-09-05 16:10 | PCSTNOTE ---
Please refer to the Bedside Swallow Evaluation in the EMR. Please note, silent aspiration cannot be ruled out at bedside.
--- NOTE | 2021-09-05 16:11 | PM.IMPN ---
Progress Note: A&P Assessment and Plan (1) N&V (nausea and vomiting): Qualifiers: Vomiting type: unspecified Qualified Code(s): R11.2 - Nausea with vomiting, unspecified Code(s): R11.2 - Nausea with vomiting, unspecified Status: Acute (2) Aspiration pneumonia: Code(s): J69.0 - Pneumonitis due to inhalation of food and vomit Status: Acute (3) Community acquired pneumonia: Code(s): J18.9 - Pneumonia, unspecified organism Status: Acute Plan # aspiration pneumonia versus community-acquired pneumonia # sepsis secondary to pneumonia (Tachycardia and leukocytosis with source of infection pneumonia) - patient presenting with sinus tachycardia, dry oral mucosa, leukocytosis, chest x-ray consistent with right mid lung airspace disease. with her nausea and vomiting there is a chance she may have aspirated also possibility for community-acquired pneumonia -antibiotics: Continue Rocephin, azithromycin - will have bedside swallow evaluation speech consult in the AM - IV fluids normal saline 100 cc/hour, will re-evaluate tomorrow # nausea/vomiting - is unclear if the nausea vomiting led to the aspiration and possible pneumonia or if the nausea vomiting started afterwards -Nausea control: P.r.n. Zofran - will watch for any other GI symptoms # other chronic conditions - anxiety/depression: Continue Zoloft -Constipation: Continue Senokot -GERD: Continue Protonix - iron deficient anemia: Continue ferrous sulfate supplement - CKD: Continue calcitriol - CVA: persistent aphasia, right-sided deficit, continue home aspirin 81 mg ( does not appear to be on statin) Diet: Clear liquid diet for now, speech therapy evaluation in a.m. DVT prophylaxis: Code status: Full code, will need to readdress with family in a.m. Disposition: Observation, pending clinical course 09/05/2021 interval history: unfortunately patient is not able to provide any review of symptom patient had a bedside swallow study and failed and will have modified swallow study, most likely patient has aspiration pneumonia, patient is being treated ceftriaxone and azithromycin will add Flagyl will continue to monitor will repeat chest x-ray and further recommendation to follow, will have a PT OT evaluate the patient patient will benefit from rehab. 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 weakness, CAD, essential hypertension, CKD,? chronic anemia, congestive heart failure reduced EF 35-40%? and grade 2 diastolic dysfunction status post defibrillator, type 2 diabetes who presents to ED with nausea vomiting altered mental status.? Patient at baseline is aphasic and has right-sided weakness, which was unclear to EMS originally.? Patient presented as CVA, however? patient appears to be at baseline post stroke deficits. ?in the ED:? Patient has had 2 episodes of emesis.? she was found to be tachycardic.? EKG shows sinus tachycardia.? chest x-ray concerning for right midlung pneumonia or atelectasis.? negative CT head noncontrast.? She has a mild leukocytosis at 13,000, creatinine 1.3.? Patient seen have possible aspiration pneumonia with her emesis and right mid lung findings.? patient to be admitted for observation for ? Community-acquired pneumonia versus aspiration pneumonia. 09/05/2021 interval history: unfortunately patient is not able to provide any review of symptom patient had a bedside swallow study and failed and will have modified swallow study, most likely patient has aspiration pneumonia, patient is being treated ceftriaxone and azithromycin will add Flagyl will continue to monitor will repeat chest x-ray and further recommendation to follow, will have a PT OT evaluate the patient patient will benefit from rehab. Review of Systems Review of Systems: patient is unable to provide any review of symptoms. Exam
[2021-09-06] MEDS: metroNIDAZOLE 500 MG/ISO 100ML 500 MG/100 ML BAG 100 MG IVPB ×3 (01:38→16:03)
[2021-09-06] MEDS: SODIUM CHLORIDE 0.9% IV 1,000 ML 100 ML IV CONT ×2 (05:12→20:36)
[2021-09-06 05:42] VITALS: BP 124/56; PULSE 91; RESP 16; TEMP 37.2; O2SAT 96
[2021-09-06 06:22] LABS: Hematocrit 31.5 % (37.0-47.0); Hemoglobin 10.2 g/dL (12.0-15.0); Mean Corpuscular HGB Conc 32.4 g/dl (32-36); Mean Corpuscular Hemoglobin 33.3 pg (26-34); Mean Corpuscular Volume 102.9 fl (80-100); Mean Platelet Volume 9.4 fl (7.4-10.4); Platelet Count Result 128 k/mm3 (150-375); Red Blood Count 3.06 M/mm3 (4.2-5.4); Red Cell Distribution Width 13.7 % (11.5-14.5); White Blood Count 9.2 K/mm3 (4.5-10.0)
[2021-09-06 06:32] LABS: Anion Gap 3 mmol/L (8-16); Blood Urea Nitrogen 27 mg/dL (7-17); Calcium 8.1 mg/dL (8.4-10.2); Carbon Dioxide 24 mmol/L (22-30); Chloride 109 mmol/L (98-107); Estimated Glomerular Filt Rate 33; Glucose 87 mg/dL (65-110); Potassium 3.9 mmol/L (3.4-5.0); Sodium 136 mmol/L (137-145)
[2021-09-06 07:35] VITALS: O2SAT 97
[2021-09-06 08:00] VITALS: O2SAT 96
[2021-09-06] MEDS: SERTRALINE HCL 25 MG TABLET PO (09:37)
--- NOTE | 2021-09-06 12:03 | PCSTNOTE ---
Please refer to the Modified Barium Swallow Evaluation in the EMR. Family present with Emely and reported history of aspiration pneumonia x3 over the past year. In the past couple months, an MBS was completed at [facility] and patient was placed on regular diet after that evaluation. On this date over the course of the evaluation, swallow function was progressively worse with increased residual throughout the pharyngeal area. Small aspiration was noted with thin liquids with a straw which Emely never reacted to. Later, a larger amount of aspiration was noted with moderately thick liquid and again patient had no reaction. She was unable to follow directions to cough or clear her throat. Repeat swallows could be facilitated with presentation of a dry spoon which was somewhat effective in clearing the residual material. Patient is not a candidate for ongoing therapy since she is unable to follow directions. At this time, NPO is the only safe option for nutrition as judging by results of this MBS.
--- NOTE | 2021-09-06 13:30 | PM.IMPN ---
Progress Note: A&P Assessment and Plan (1) N&V (nausea and vomiting): Qualifiers: Vomiting type: unspecified Qualified Code(s): R11.2 - Nausea with vomiting, unspecified Code(s): R11.2 - Nausea with vomiting, unspecified Status: Acute (2) Aspiration pneumonia: Code(s): J69.0 - Pneumonitis due to inhalation of food and vomit Status: Acute (3) Community acquired pneumonia: Code(s): J18.9 - Pneumonia, unspecified organism Status: Acute Plan # aspiration pneumonia versus community-acquired pneumonia # sepsis secondary to pneumonia (Tachycardia and leukocytosis with source of infection pneumonia) - patient presenting with sinus tachycardia, dry oral mucosa, leukocytosis, chest x-ray consistent with right mid lung airspace disease. with her nausea and vomiting there is a chance she may have aspirated also possibility for community-acquired pneumonia -antibiotics: Continue Rocephin, azithromycin - will have bedside swallow evaluation speech consult in the AM - IV fluids normal saline 100 cc/hour, will re-evaluate tomorrow # nausea/vomiting - is unclear if the nausea vomiting led to the aspiration and possible pneumonia or if the nausea vomiting started afterwards -Nausea control: P.r.n. Zofran - will watch for any other GI symptoms # other chronic conditions - anxiety/depression: Continue Zoloft -Constipation: Continue Senokot -GERD: Continue Protonix - iron deficient anemia: Continue ferrous sulfate supplement - CKD: Continue calcitriol - CVA: persistent aphasia, right-sided deficit, continue home aspirin 81 mg ( does not appear to be on statin) Diet: Clear liquid diet for now, speech therapy evaluation in a.m. DVT prophylaxis: Code status: Full code, will need to readdress with family in a.m. Disposition: Observation, pending clinical course 09/05/2021 interval history: unfortunately patient is not able to provide any review of symptom patient had a bedside swallow study and failed and will have modified swallow study, most likely patient has aspiration pneumonia, patient is being treated ceftriaxone and azithromycin will add Flagyl will continue to monitor will repeat chest x-ray and further recommendation to follow, will have a PT OT evaluate the patient patient will benefit from rehab. 09/06/2021 interval history: unfortunately patient is not able to provide any review of symptom patient had a bedside swallow study on 09/05and failed and will have modified swallow study today, most likely patient has aspiration pneumonia, patient is being treated ceftriaxone and azithromycin added Flagyl, today her daughter is present in the room gave updates, will continue to monitor will repeat chest x-ray and further recommendation to follow, will have a PT OT evaluate the patient patient will benefit from rehab. Subjective Date/time seen: 09/06/21 13:30 09/06/2021 interval history: unfortunately patient is not able to provide any review of symptom patient had a bedside swallow study on 09/05and failed and will have modified swallow study today, most likely patient has aspiration pneumonia, patient is being treated ceftriaxone and azithromycin added Flagyl, today her daughter is present in the room gave updates, will continue to monitor will repeat chest x-ray and further recommendation to follow, will have a PT OT evaluate the patient patient will benefit from rehab. Exam Narrative: Patient is comfortable, NAD HEENT: eyes are clear and none icteric LUNGS: normal respiratory effort ABD: nondistended Lower extremities: no edema SKIN: nonjaundiced Neuro: aphasic, dementia. Objective Data Vital Signs Vital Signs: Vital Signs - 24 hr 09/05/21 14:00 09/05/21 22:00 09/05/21 23:10 Temperature 97.8 F 98.4 F Pulse Rate 90 82 80 Respiratory Rate 18 16 Blood Pressure 105/58 L 116/59 L Pulse Oximetry 97 94 96 Oxygen Delivery Nasal Cannula Oxygen Flow Rate
[2021-09-06 14:00] VITALS: BP 136/65; PULSE 69; RESP 16; TEMP 36.3; O2SAT 100
[2021-09-06 20:00] VITALS: O2SAT 100
[2021-09-06] MEDS: KETOROLAC 15 MG/ML VIAL (*BKC) IV PUSH (21:15)
[2021-09-06 22:00] VITALS: BP 150/67; PULSE 80; RESP 18; TEMP 36.4; O2SAT 100
[2021-09-07] MEDS: metroNIDAZOLE 500 MG/ISO 100ML 500 MG/100 ML BAG 100 MG IVPB ×3 (01:13→16:04)
[2021-09-07] MEDS: KETOROLAC 15 MG/ML VIAL (*BKC) IV PUSH (03:41)
[2021-09-07 06:00] VITALS: BP 129/62; PULSE 72; RESP 16; TEMP 36.2; O2SAT 100
[2021-09-07 06:27] LABS: Hematocrit 32.5 % (37.0-47.0); Hemoglobin 10.3 g/dL (12.0-15.0); Mean Corpuscular HGB Conc 31.7 g/dl (32-36); Mean Corpuscular Hemoglobin 33.7 pg (26-34); Mean Corpuscular Volume 106.2 fl (80-100); Mean Platelet Volume 9.8 fl (7.4-10.4); Platelet Count Result 124 k/mm3 (150-375); Red Blood Count 3.06 M/mm3 (4.2-5.4); Red Cell Distribution Width 13.3 % (11.5-14.5); White Blood Count 7.1 K/mm3 (4.5-10.0)
[2021-09-07 06:38] LABS: Anion Gap 10 mmol/L (8-16); Blood Urea Nitrogen 25 mg/dL (7-17); Calcium 8.3 mg/dL (8.4-10.2); Carbon Dioxide 18 mmol/L (22-30); Chloride 109 mmol/L (98-107); Estimated Glomerular Filt Rate 36; Glucose 66 mg/dL (65-110); Potassium 3.9 mmol/L (3.4-5.0); Sodium 137 mmol/L (137-145)
[2021-09-07 08:00] VITALS: O2SAT 97
[2021-09-07] MEDS: SODIUM CHLORIDE 0.9% IV 1,000 ML 100 ML IV CONT ×2 (08:45→21:43)
[2021-09-07 08:55] VITALS: O2SAT 96
[2021-09-07] MEDS: HYDROmorphone HCL INJ (*CRX) 1 MG/ML SYR 0.5 MG IV PUSH ×2 (10:31→16:05)
[2021-09-07 14:00] VITALS: BP 140/65; PULSE 72; RESP 16; TEMP 36.1; O2SAT 97
[2021-09-07] MEDS: FERROUS SULFATE LIQUID 325 MG/7.4 ML ELIXIR 324 MG FEED TUBE (17:26)
[2021-09-07] MEDS: ONDANSETRON INJ 4 MG/2 ML VIAL IV PUSH (18:46)
[2021-09-07 21:00] VITALS: O2SAT 97
[2021-09-07 22:00] VITALS: BP 134/54; PULSE 61; RESP 18; TEMP 36.2; O2SAT 97
[2021-09-08] MEDS: metroNIDAZOLE 500 MG/ISO 100ML 500 MG/100 ML BAG 100 MG IVPB ×3 (03:40→17:28)
[2021-09-08] MEDS: KETOROLAC 15 MG/ML VIAL (*BKC) IV PUSH ×2 (03:45→10:21)
[2021-09-08 06:00] VITALS: BP 117/63; PULSE 83; RESP 16; TEMP 36.5; O2SAT 95
[2021-09-08 07:25] LABS: Hematocrit 34.9 % (37.0-47.0); Hemoglobin 10.9 g/dL (12.0-15.0); Mean Corpuscular HGB Conc 31.2 g/dl (32-36); Mean Corpuscular Hemoglobin 33.5 pg (26-34); Mean Corpuscular Volume 107.4 fl (80-100); Mean Platelet Volume 9.3 fl (7.4-10.4); Platelet Count Result 139 k/mm3 (150-375); Red Blood Count 3.25 M/mm3 (4.2-5.4); Red Cell Distribution Width 13.2 % (11.5-14.5); White Blood Count 6.6 K/mm3 (4.5-10.0)
[2021-09-08 07:56] LABS: Anion Gap 11 mmol/L (8-16); Blood Urea Nitrogen 23 mg/dL (7-17); Calcium 8.3 mg/dL (8.4-10.2); Carbon Dioxide 17 mmol/L (22-30); Chloride 112 mmol/L (98-107); Estimated Glomerular Filt Rate 36; Glucose 54 mg/dL (65-110); Potassium 4.4 mmol/L (3.4-5.0); Sodium 140 mmol/L (137-145)
[2021-09-08 07:58] LABS: Glucose Point of Care 250 mg/dl (65-105)
[2021-09-08 08:00] VITALS: O2SAT 95
[2021-09-08] MEDS: DEXTROSE 50% 25 GM/50 ML SYRINGE IV PUSH (08:05)
[2021-09-08 08:25] LABS: Glucose Point of Care 109 mg/dl (65-105)
[2021-09-08] MEDS: DEXTROSE 5%/0.9% SOD CHL 1,000 ML 100 ML IV CONT ×2 (08:47→21:12)
[2021-09-08 09:00] VITALS: O2SAT 94
[2021-09-08 11:43] LABS: Glucose Point of Care 81 mg/dl (65-105)
--- NOTE | 2021-09-08 11:53 | WPDCDIQUERY2 ---
CDI Query Clarification Request Plan # aspiration pneumonia versus community-acquired pneumonia # sepsis secondary to pneumonia?(Tachycardia and leukocytosis with source of infection pneumonia) - patient presenting with sinus tachycardia, dry oral mucosa, leukocytosis, chest x-ray consistent with right mid lung? airspace disease.? with her nausea and vomiting there is a chance she may have aspirated also possibility for community-acquired pneumonia -antibiotics:? Continue Rocephin, azithromycin - will have? bedside swallow evaluation speech consult in the AM -? IV fluids normal saline 100 cc/hour, will re-evaluate tomorrow Please clarify if Sepsis has been ruled in, if ruled in please add to problem list. <Zayra López - Last Filed: 09/08/21 11:56> Clarified Diagnosis (1) Community acquired pneumonia: Code(s): J18.9 - Pneumonia, unspecified organism <Zayra López - Last Filed: 09/08/21 11:56> Status: Acute <Zayra López - Last Filed: 09/08/21 11:56> Assessment and Plan: patient with pneumonia, upon arrival patient had a fever, tachycardia and mildly elevated leukocyte, lactic acid was not done, blood culture were negative for any infection, fever resolved quickly, there was no hypotension, sepsis was ruled out most likely patient presenting symptoms were related to pneumonia <Anna Crabtree MD - Last Filed: 09/18/21 16:44>
[2021-09-08 13:14] VITALS: BMI 21.0
--- NOTE | 2021-09-08 13:40 | PM.IMPN ---
Progress Note: A&P Assessment and Plan (1) N&V (nausea and vomiting): Qualifiers: Vomiting type: unspecified Qualified Code(s): R11.2 - Nausea with vomiting, unspecified Code(s): R11.2 - Nausea with vomiting, unspecified Status: Acute (2) Aspiration pneumonia: Code(s): J69.0 - Pneumonitis due to inhalation of food and vomit Status: Acute (3) Community acquired pneumonia: Code(s): J18.9 - Pneumonia, unspecified organism Status: Acute Plan # aspiration pneumonia versus community-acquired pneumonia # sepsis secondary to pneumonia (Tachycardia and leukocytosis with source of infection pneumonia) - patient presenting with sinus tachycardia, dry oral mucosa, leukocytosis, chest x-ray consistent with right mid lung airspace disease. with her nausea and vomiting there is a chance she may have aspirated also possibility for community-acquired pneumonia -antibiotics: Continue Rocephin, azithromycin - will have bedside swallow evaluation speech consult in the AM - IV fluids normal saline 100 cc/hour, will re-evaluate tomorrow # nausea/vomiting - is unclear if the nausea vomiting led to the aspiration and possible pneumonia or if the nausea vomiting started afterwards -Nausea control: P.r.n. Zofran - will watch for any other GI symptoms # other chronic conditions - anxiety/depression: Continue Zoloft -Constipation: Continue Senokot -GERD: Continue Protonix - iron deficient anemia: Continue ferrous sulfate supplement - CKD: Continue calcitriol - CVA: persistent aphasia, right-sided deficit, continue home aspirin 81 mg ( does not appear to be on statin) Diet: Clear liquid diet for now, speech therapy evaluation in a.m. DVT prophylaxis: Code status: Full code, will need to readdress with family in a.m. Disposition: Observation, pending clinical course 09/05/2021 interval history: unfortunately patient is not able to provide any review of symptom patient had a bedside swallow study and failed and will have modified swallow study, most likely patient has aspiration pneumonia, patient is being treated ceftriaxone and azithromycin will add Flagyl will continue to monitor will repeat chest x-ray and further recommendation to follow, will have a PT OT evaluate the patient patient will benefit from rehab. 09/06/2021 interval history: unfortunately patient is not able to provide any review of symptom patient had a bedside swallow study on 09/05and failed and will have modified swallow study today, most likely patient has aspiration pneumonia, patient is being treated ceftriaxone and azithromycin added Flagyl, today her daughter is present in the room gave updates, will continue to monitor will repeat chest x-ray and further recommendation to follow, will have a PT OT evaluate the patient patient will benefit from rehab. 09/07/2021 interval history: unfortunately patient is not able to provide any review of symptom patient had a bedside swallow study on 09/05and failed and on had modified swallow study failed, most likely patient has aspiration pneumonia, patient is being treated ceftriaxone and azithromycin added Flagyl, blood culture no growth so far, today her daughter is present in the room gave updates, got consent to NGtube for feeding and medications, Will continue ST and repeat MBS in 2-3 days if patient fails again will consult GI for PEG placement, will continue to monitor will repeat chest x-ray and further recommendation to follow, will have a PT OT evaluate the patient patient will benefit from rehab. 09/08/2021 interval history: unfortunately patient is not able to provide any review of symptom patient had a bedside swallow study on 09/05and failed and on 09/06 had modified swallow study failed, most likely patient has aspiration pneumonia, patient is being treated ceftriaxone and azithromycin added Flagyl, blood culture no growth so far, on 09/07 her Daughter was present a
[2021-09-08 14:00] VITALS: BP 144/60; PULSE 65; RESP 16; TEMP 36.3; O2SAT 97
--- NOTE | 2021-09-08 15:31 | WPDGICN ---
Assessment and Plan Assessment and plan (1) N&V (nausea and vomiting): Qualifiers: Vomiting type: unspecified Qualified Code(s): R11.2 - Nausea with vomiting, unspecified Code(s): R11.2 - Nausea with vomiting, unspecified Status: Acute Assessment and Plan: on presentation she failed barium swallow and also she is here with aspiration pneumonia primary team already talked to family member to consider g-tube placement, will do tomorrow (she also has been pulling DHT and is not getting any nutrition- noted hypoglycemia) (2) Aspiration pneumonia: Code(s): J69.0 - Pneumonitis due to inhalation of food and vomit Status: Acute Assessment and Plan: on treatment, better (3) Aphasia as late effect of cerebrovascular accident: Code(s): I69.320 - Aphasia following cerebral infarction Status: Acute Assessment and Plan: also affecting her swallowing g-tube placement (4) Congestive heart failure: Code(s): I50.9 - Heart failure, unspecified Status: Chronic (5) Hypoglycemia: Code(s): E16.2 - Hypoglycemia, unspecified Status: Acute Assessment and Plan: treated she is npo (6) Chronic kidney disease: Code(s): N18.9 - Chronic kidney disease, unspecified Status: Chronic GI Consult Note Consult date/time: 09/08/21 15:31 Reason for consult: aspiration, nausea and vomiting HPI: Emely Candelario is a 81 year old female?past medical history of CVA with deficits of aphasia and right-sided? weakness, CAD, essential hypertension, CKD with creatinine 1.6,?chronic anemia qith hg 9-10, congestive heart failure reduced EF 35-40% status post defibrillator, type 2 diabetes who was admitted few days ago after new onset of nausea, vomiting and altered mental status.?She has aphasia and is confused at baseline, could not get history from her. Chest x-ray concerning for right midlung pneumonia or atelectasis, started on antibiotics, negative CT head noncontrast.? Also had leukocytosis at 13,000, creatinine 1.3. Modified barium swallow test showed multiple episodes of laryngeal penetration with silent aspiration. She pulled the DHT that was placed and now primary is asking for G-tube placement. Review of Systems Review of Systems: patient is unable to provide any review of symptoms. ROS unobtainable: Yes unobtainable due to mental status PMFSH Past Medical History Medical History (Updated 09/08/21 @ 15:52 by Enio Merrill MD) Anemia Aphasia as late effect of cerebrovascular accident CAD (coronary artery disease) Cardiac defibrillator in place Chronic kidney disease Compression fx, thoracic spine Congestive heart failure DM2 (diabetes mellitus, type 2) Hyperlipidemia Hypertension Surgical History Surgical History H/O heart artery stent Family History Family History Unknown Unknown family medical history Social History Social History Social History: according to the patient's face sheet she is retired. She has 2 daughters listed under her contacts. She is from [facility]. Patient is listed as a full code. Smoking status: Never smoker Alcohol intake: never Substance use: never Spiritual care concerns: No Meds Home Medications and Allergies Home Medications Medication Instructions Recorded Confirmed Type acetaminophen 650 mg tablet 650 mg PO QID PRN Pain 02/03/21 09/05/21 History albuterol sulfate 5 mg/mL(0.5 %) 5 mg inhalation Q4H PRN Shortness 02/03/21 09/05/21 History solution for nebulization Of Breath Or Wheezing aspirin 81 mg tablet,delayed 81 mg PO DAILY 02/03/21 09/05/21 History release calcitriol 0.25 mcg capsule 0.25 mcg PO 3XW 02/03/21 09/05/21 History furosemide 20 mg tablet 20 mg PO B
[2021-09-08] MEDS: HYDROmorphone HCL INJ (*CRX) 1 MG/ML SYR 0.5 MG IV PUSH (15:48)
[2021-09-08 16:39] LABS: Glucose Point of Care 102 mg/dl (65-105)
[2021-09-08 20:00] VITALS: O2SAT 97
[2021-09-08 22:00] VITALS: BP 145/80; PULSE 75; RESP 18; TEMP 36.1; O2SAT 99
[2021-09-09] VITALS (11 sets, daily range): BP systolic 132–168; BP diastolic 70–89; PULSE 66–76; RESP 15–27; TEMP 35.9–36.4; O2SAT 91–100
[2021-09-09] MEDS: metroNIDAZOLE 500 MG/ISO 100ML 500 MG/100 ML BAG 100 MG IVPB ×3 (01:01→17:15)
[2021-09-09] MEDS: KETOROLAC 30 MG/ML VIAL (*BKC) 15 MG IV PUSH ×2 (03:38→14:20)
[2021-09-09 06:20] LABS: Hematocrit 33.9 % (37.0-47.0); Mean Corpuscular HGB Conc 32.4 g/dl (32-36); Mean Corpuscular Hemoglobin 33.7 pg (26-34); Mean Platelet Volume 9.3 fl (7.4-10.4); Platelet Count Result 145 k/mm3 (150-375); Red Blood Count 3.26 M/mm3 (4.2-5.4); Red Cell Distribution Width 13.2 % (11.5-14.5); White Blood Count 5.5 K/mm3 (4.5-10.0)
[2021-09-09 06:31] LABS: Anion Gap 6 mmol/L (8-16); Blood Urea Nitrogen 17 mg/dL (7-17); Calcium 8.4 mg/dL (8.4-10.2); Carbon Dioxide 21 mmol/L (22-30); Chloride 113 mmol/L (98-107); Estimated CRCL calculation 24 ml/min; Estimated Glomerular Filt Rate 43; Glucose 139 mg/dL (65-110); Potassium 3.8 mmol/L (3.4-5.0); Sodium 140 mmol/L (137-145)
[2021-09-09] MEDS: DEXTROSE 5%/0.9% SOD CHL 1,000 ML 100 ML IV CONT (09:34)
--- NOTE | 2021-09-09 10:34 | PCNFU ---
Nutrition Follow-Up Complete: Inadequate energy intake related to swallowing difficulty as evidenced by failed MBS and NPO orders. goal: Meet estimated needs Patient is progressing towards goal. We will continue current goal. Pt current nutrition is NPO. Nutrition recommendation: Jevity 1.2 at 20 ml/hr advance by 10 ml q 4 hours to goal rate of 45 ml/hr. Last recorded weight is 48.9 kg, stable Bowel Motility:Last BM reported 09/06 Labs Reviewed:GFR 43, Cr 1.2,Glu 139, Hct 33.9,Hgb 11.0 Meds Noted:Rocephin, Flagyl Skin: WNL Additional Notes: Patient remains NPO. Plans for PEG today. Tube feeding recommendations:Jevity 1.2 at 20 ml/hr advance by 10 ml q 4 hours to goal rate of 45 ml/hr. Free water flush 30 ml q 4 hours. Tube feeding providing 1188 kcals/55 gm protein/976 ml water. Tube feeding meeting 98% caloric needs and 100% protein needs. Agree with diet orders. Monitor for diet orders, wt, labs. Follow up every Wednesday and Wednesday.
--- NOTE | 2021-09-09 11:56 | PC.NURSE ---
patient to GI lab for procedure via stretcher.
--- NOTE | 2021-09-09 12:11 | WPDANESEPPF ---
Anes - Initial Pre Proc Eval Procedure: Operation Date: 09/09/21 14:30 Proposed Procedures p Esophagogastroduodenoscopy - Enio Merrill MD s Percutaneous Endoscopic Gastrostomy - Enio Merrill MD Date/Time: 09/09/21 12:11 Surgeon: Max Linn DO Pre Op Diagnosis: Nausea vomiting, pneumonia Patient Data Age: 81 Gender: F Height: 1.52 m Weight: 48.9 kg Last Vital Signs Temp 36.3 C L 09/09/21 06:00 Pulse 73 09/09/21 06:00 Resp 18 09/09/21 06:00 BP 154/77 H 09/09/21 06:00 Pulse Ox 91 09/09/21 08:30 O2 Del Method Nasal Cannula 09/09/21 08:30 O2 Flow Rate 3 09/09/21 08:30 Allergies Allergy/AdvReac Type Severity Reaction Status Date / Time codeine Allergy Unknown Verified 02/03/21 13:37 hydrocodone Allergy Unknown Verified 02/03/21 13:37 morphine Allergy Unknown Verified 02/03/21 13:37 [id number] Reductase Allergy Unknown Verified 02/03/21 13:37 Inhibitor Home Medications Medication Instructions Recorded Confirmed Type acetaminophen 650 mg tablet 650 mg PO QID PRN Pain 02/03/21 09/05/21 History albuterol sulfate 5 mg/mL(0.5 %) 5 mg inhalation Q4H PRN Shortness 02/03/21 09/05/21 History solution for nebulization Of Breath Or Wheezing aspirin 81 mg tablet,delayed 81 mg PO DAILY 02/03/21 09/05/21 History release calcitriol 0.25 mcg capsule 0.25 mcg PO 3XW 02/03/21 09/05/21 History furosemide 20 mg tablet 20 mg PO BID 02/03/21 09/05/21 History sennosides 8.6 mg tablet (Senna 17.2 mg PO DAILY 02/03/21 09/05/21 History Lax) ferrous sulfate 324 mg (65 mg 324 mg PO BID #60 tabs 02/06/21 09/05/21 Rx iron) tablet,delayed release pantoprazole 40 mg tablet,delayed 40 mg PO DAILY 09/05/21 09/05/21 History release sertraline 25 mg tablet 25 mg PO DAILY 09/05/21 09/05/21 History Laboratory Tests 09/08/21 09/09/21 09/09/21 16:19 05:46 05:46 WBC 5.5 K/mm3 K/mm3 (4.5-10.0) RBC 3.26 M/mm3 L M/mm3 (4.2-5.4) Hgb 11.0 g/dL L g/dL (12.0-15.0) Hct 33.9 % L % (37.0-47.0) MCV 104.0 fl H fl (80-100) MCH 33.7 pg pg (26-34) MCHC 32.4 g/dl g/dl (32-36) RDW 13.2 % % (11.5-14.5) Plt Count 145 k/mm3 L k/mm3 (150-375) MPV 9.3 fl fl (7.4-10.4) Sodium 140 mmol/L mmol/L (137-145) Potassium 3.8 mmol/L mmol/L (3.4-5.0) Chloride 113 mmol/L H mmol/L (98-107) Carbon Dioxide 21 mmol/L L mmol/L (22-30) Anion Gap 6 mmol/L L mmol/L (8-16) BUN 17 mg/dL mg/dL (7-17) Creatinine 1.20 mg/dL H mg/dL (0.7-1.0) Estim Creat Clear Calc 24 ml/min ml/min Estimated GFR 43 L (59 - ) Glucose 139 mg/dL H mg/dL (65-110) POC Capillary Glucose 102 mg/dl mg/dl (65-105) Calcium 8.4 mg/dL mg/dL (8.4-10.2) Patient hx anesthesia problems: none Family hx anesthesia problems: none Results Review: All pre-operative results and documents have been reviewed as part of the pre-operative evaluation. [facility] Past Medical History Medical History Anemia Aphasia as late effect of cerebrovascular accident CAD (coronary artery disease) Cardiac defibrillator in place Chronic kidney disease Compression fx, thoracic spine Congestive heart failure DM2 (diabetes mellitus, type 2) Hyperlipidemia Hypertension Surgical History Surgical History H/O heart artery stent Family History Family History Unknown Unknown family medical history Social History Social History Social History: according to the patient's face sheet she is retired. She has 2 daughters listed under her contacts. She is from [place] [facility]
[2021-09-09] MEDS: LACTATED RINGERS 1,000 ML 150 ML IV CONT (12:17)
--- NOTE | 2021-09-09 13:51 | PC.NURSE ---
Patient returned to floor from GI laboratory
[2021-09-09] MEDS: FERROUS SULFATE LIQUID 325 MG/7.4 ML ELIXIR 324 MG FEED TUBE (19:54)
[2021-09-10] MEDS: DEXTROSE 5%/0.9% SOD CHL 1,000 ML 100 ML IV CONT ×2 (00:52→09:54)
[2021-09-10] MEDS: metroNIDAZOLE 500 MG/ISO 100ML 500 MG/100 ML BAG 100 MG IVPB ×3 (01:01→17:33)
[2021-09-10] MEDS: KETOROLAC 30 MG/ML VIAL (*BKC) 15 MG IV PUSH ×2 (04:05→20:22)
[2021-09-10] MEDS: LANSOPRAZOLE ORAL SUSP 30 MG/10 ML ORAL.SUSP FEED TUBE (05:34)
[2021-09-10 06:00] VITALS: BP 131/62; PULSE 67; RESP 18; TEMP 36.1; O2SAT 100
[2021-09-10 06:10] LABS: Anion Gap 8 mmol/L (8-16); Blood Urea Nitrogen 12 mg/dL (7-17); Calcium 8.3 mg/dL (8.4-10.2); Carbon Dioxide 17 mmol/L (22-30); Chloride 115 mmol/L (98-107); Estimated CRCL calculation 28 ml/min; Estimated Glomerular Filt Rate 53; Glucose 145 mg/dL (65-110); Potassium 3.7 mmol/L (3.4-5.0); Sodium 140 mmol/L (137-145)
--- NOTE | 2021-09-10 09:13 | WPDANESPN ---
Anes - Prog Note Post-Op Date/Time: 09/10/21 09:13 Vital Signs: Last Vital Signs Temp 36.1 C L 09/10/21 06:00 Pulse 67 09/10/21 06:00 Resp 18 09/10/21 06:00 BP 131/62 09/10/21 06:00 Pulse Ox 100 09/10/21 06:00 O2 Del Method Nasal Cannula 09/09/21 20:00 O2 Flow Rate 3 09/09/21 20:00 Pain Score (VAS): Patient confused, no nonverbal signs of pain. I/O: Intake & Output 09/09/21 09/10/21 09/10/21 23:59 07:59 15:59 Intake Total 1640 0 Output Total 100 Balance 1640 -100 Laboratory Tests 09/10/21 05:12 09/10/21 09/10/21 05:12 05:12 WBC Pending RBC Pending Hgb Pending Hct Pending MCV Pending MCH Pending MCHC Pending RDW Pending Plt Count Pending MPV Pending Sodium 140 Potassium 3.7 Chloride 115 H Carbon Dioxide 17 L Anion Gap 8 BUN 12 D Creatinine 1.00 Estim Creat Clear Calc 28 Estimated GFR 53 L Glucose 145 H Calcium 8.3 L Patient Feedback: Patient satisfied with anesthetic care.
[2021-09-10] MEDS: SERTRALINE HCL 25 MG TABLET FEED TUBE (09:46)
[2021-09-10] MEDS: ASPIRIN 81 MG CHEWABLE TABLET FEED TUBE (09:46)
[2021-09-10] MEDS: SENNOSIDES 8.8 MG/5 ML SYRUP 17.6 MG FEED TUBE (09:48)
[2021-09-10] MEDS: ACETAMINOPHEN ELIXIR 325 MG/10.15 ML UDC 650 MG FEED TUBE (09:52)
[2021-09-10] MEDS: FERROUS SULFATE LIQUID 325 MG/7.4 ML ELIXIR 324 MG FEED TUBE ×2 (09:54→17:33)
[2021-09-10 10:21] LABS: Hematocrit 36.6 % (37.0-47.0); Hemoglobin 10.7 g/dL (12.0-15.0); Immature Platelet Fraction Pct 1.1 % (0.9-11.2); Mean Corpuscular HGB Conc 29.2 g/dl (32-36); Mean Corpuscular Hemoglobin 33.8 pg (26-34); Mean Corpuscular Volume 115.5 fl (80-100); Mean Platelet Volume 9.5 fl (7.4-10.4); Platelet Count Result 157 k/mm3 (150-375); Red Blood Count 3.17 M/mm3 (4.2-5.4); Red Cell Distribution Width 13.4 % (11.5-14.5); White Blood Count 5.2 K/mm3 (4.5-10.0)
--- NOTE | 2021-09-10 13:29 | PM.DS ---
DS: Admitting Diagnosis Discharge Date September 10, 2021 Admitting Diagnosis aspiration pneumonia DS: Discharge Diagnosis Discharge Diagnosis (1) N&V (nausea and vomiting): Qualifiers: Vomiting type: unspecified Qualified Code(s): R11.2 - Nausea with vomiting, unspecified Code(s): R11.2 - Nausea with vomiting, unspecified Status: Acute (2) Aspiration pneumonia: Code(s): J69.0 - Pneumonitis due to inhalation of food and vomit Status: Acute (3) Community acquired pneumonia: Code(s): J18.9 - Pneumonia, unspecified organism Status: Acute Plan # aspiration pneumonia versus community-acquired pneumonia # sepsis secondary to pneumonia (Tachycardia and leukocytosis with source of infection pneumonia) - present on admission, now resolved -antibiotics: Continue Rocephin, azithromycin, well in patient. Discharge on oral antibiotics. - Status post PEG tube placed. Tube feeds at goal And she is tolerating well # nausea/vomiting - improved # other chronic conditions - anxiety/depression: Continue Zoloft -Constipation: Continue Senokot -GERD: Continue Protonix - iron deficient anemia: Continue ferrous sulfate supplement - CKD: Continue calcitriol - CVA: persistent aphasia, right-sided deficit, continue home aspirin 81 mg ( does not appear to be on statin) DS: Summary Hospital Course Hospital Course: patient is admitted for sepsis secondary to pneumonia. The 12 IV antibiotics. Will be sent home on oral antibiotics. To note patient also failed swallow study and ultimately had a PEG tube placed. Tube feeds will be continued on discharge. Time Spent with Patient Time attestation: Total time spent providing and/or coordinating discharge services: Exam Narrative: Patient is comfortable, NAD HEENT: eyes are clear and none icteric LUNGS: normal respiratory effort ABD: nondistended Lower extremities: no edema SKIN: nonjaundiced Neuro: aphasic, dementia. DS: Data Data Completed and Pending Labs on day of discharge: Labs from last 24 hours 09/10/21 09/10/21 05:12 05:12 WBC 5.2 RBC 3.17 L Hgb 10.7 L Hct 36.6 L MCV 115.5 H D MCH 33.8 MCHC 29.2 L RDW 13.4 Plt Count 157 MPV 9.5 % Immature Plt Fraction 1.1 Sodium 140 Potassium 3.7 Chloride 115 H Carbon Dioxide 17 L Anion Gap 8 BUN 12 D Creatinine 1.00 Estim Creat Clear Calc 28 Estimated GFR 53 L Glucose 145 H Calcium 8.3 L Discharge Plan Discharge Attending physician on discharge: Imer Acevedo Consulting providers: Enio Merrill Discharging Clinician: Imer Acevedo Patient Disposition: Home, Self-Care Activity: no shower Diet: as tolerated Discharge Instructions: Per care coordination: [facility] at discharge; please fax discharge orders to [phone] Patient Instructions: Antibiotic Form, Pain Management (DC) Stand Alone Forms: General Discharge Information Follow-up/Referrals: Enio Merrill MD [Physician] - Discharge Medications: New amoxicillin-pot clavulanate 875-125 mg tablet 1 tablet PO Q12H 5 Days Qty: 10 0RF Continued aspirin 81 mg Tablet,Delayed Release (Dr/Ec) 81 mg PO DAILY acetaminophen 650 mg Tablet 650 mg PO QID PRN (Reason: Pain) albuterol sulfate 5 mg/mL Solution For Nebulization 5 mg INHALATION Q4H PRN (Reason: Shortness Of Breath Or Wheezing) calcitriol 0.25 mcg Capsule 0.25 mcg PO 3XW Rx Instructions: Takes on Mon, Wed., Wednesday sennosides [Senna Lax] 8.6 mg Tablet 17.2 mg PO DAILY furosemide 20 mg Tablet 20 mg PO BID ferrous sulfate 324 mg (65 mg iron) tablet,delayed release (DR/EC) 324 mg PO BID Qty: 60 0RF pantoprazole 40 mg tablet,delayed release (DR/EC) 40 mg PO DAILY sertraline 25 mg tablet 25 mg PO DAILY Date of admission: 09/06/21 13:59 Johnathon
[2021-09-10 13:40] VITALS: O2SAT 97
[2021-09-10 14:00] VITALS: BP 149/62; PULSE 74; RESP 18; TEMP 36.3; O2SAT 97
--- NOTE | 2021-09-10 17:42 | WPDGIPROGNO ---
Progress Note: A&P Assessment and Plan (1) Aphasia as late effect of cerebrovascular accident: Code(s): I69.320 - Aphasia following cerebral infarction Status: Acute Assessment and Plan: s/p peg placement without complications tolerating ok will follow from afar, call if questions (2) N&V (nausea and vomiting): Qualifiers: Vomiting type: unspecified Qualified Code(s): R11.2 - Nausea with vomiting, unspecified Code(s): R11.2 - Nausea with vomiting, unspecified Status: Acute Assessment and Plan: resolved, antiemetics prn (3) Aspiration pneumonia: Code(s): J69.0 - Pneumonitis due to inhalation of food and vomit Status: Acute Assessment and Plan: she is on antibiotics (4) DM2 (diabetes mellitus, type 2): Code(s): E11.9 - Type 2 diabetes mellitus without complications Status: Chronic Subjective Date/time seen: 09/10/21 17:42 Interval history: successful placement of G-tube, tolerating tube feeding at 45 ml/h family at bedside Review of Systems Review of Systems: patient is unable to provide any review of symptoms. ROS unobtainable: Yes unobtainable due to mental status Exam Const: Other: chronically ill appearing, she was sleeping but arousable HENMT: General nose exam: Normal nares present Eyes: General: appearance normal, both eyes and all related structures Neck: Neck: supple Resp: Effort & Inspection: normal respiratory effort Auscultation: no wheezes and diminished lung sounds Cardio: Rate: regular rate GI: GI Palp: Yes Soft to palpation, Yes Firmness to palpation present (GI), No Tenderness to palpation present (GI) and No Guarding due to palpation present (GI) Auscultation: normal bowel sounds Other: G-tube in position, binder Skin: General skin exam: normal color Neuro: Other: right sided is flaccid, she is awake but confused, history of aphasia Extrem: General: no edema Objective Data Vital Signs Vital Signs: Vital Signs - 24 hr 09/09/21 20:00 09/09/21 21:58 09/10/21 06:00 Temperature 96.6 F L 96.9 F L Pulse Rate 76 67 Respiratory Rate 18 18 Blood Pressure 132/89 131/62 Pulse Oximetry 100 100 100 Oxygen Delivery Nasal Cannula Oxygen Flow Rate 3 09/10/21 13:40 09/10/21 14:00 Temperature 97.3 F L Pulse Rate 74 Respiratory Rate 18 Blood Pressure 149/62 H Pulse Oximetry 97 97 Oxygen Delivery Nasal Cannula Oxygen Flow Rate 3 Intake/Output Intake/Output: Intake & Output 09/07/21 09/08/21 09/09/21 09/10/21 23:59 23:59 23:59 23:59 Intake Total 2500 1600 2990 1200 Output Total 1 100 Balance 2499 1600 2990 1100 Meds/Results Medications: Active Medications Generic Name Dose Route Start Last Admin Trade Name Freq PRN Reason Stop Dose Admin Acetaminophen 650 mg 09/07/21 14:19 09/10/21 09:52 Acetaminophen Elixir 325 Mg/10.15 Ml Udc FEED TUBE 650 mg QID PRN Administration Pain Rated 1-3 Albuterol 5 mg 09/05/21 03:32 Albuterol Sulfate Neb 2.5 Mg/0.5 Ml Inh INHALATION Q4H PRN Shortness Of Breath Or Wheezing Aspirin 81 mg 09/08/21 09:00 09/10/21 09:46 Aspirin 81 Mg Chewable Tablet FEED TUBE 81 mg DAILY PAYTON Administration Calcitriol 0.25 mcg 09/05/21 09:00 09/05/21 09:23 Calcitriol 0.25 Mcg Capsule PO 0.25 mcg MoWeFr@0900 PAYTON Administration Dextrose 12.5 gm 09/08/21 07:59 09/08/21 08:05 Dextrose 50% 25 Gm/50 Ml Syringe IV PUSH 12.5 gm PRN PRN Administration Hypoglycemia Protocol Ferrous Sulfate 324 mg 09/07/21 17:00 09/10/21 17:33 Ferrous Sulfate Liquid 325 Mg/7.4 Ml Elixir FEED TUBE 324 mg BIDWM PAYTON Administration Glucagon 1 mg 09/08/21 07:59 Glucagon For Inj 1 Mg Vial IM PRN PRN Hypoglycemia Protocol Glucose 15 gm 09/08/21 07:59 Glucose Oral Gel 15 Gm Of Glucse In 37.5 Gm Tube PO PRN PRN Hypoglycemia Protocol Hydromorphone HC
[2021-09-10 20:00] VITALS: O2SAT 97
[2021-09-10 22:00] VITALS: BP 122/60; PULSE 73; RESP 16; TEMP 36.1; O2SAT 100
[2021-09-11] MEDS: metroNIDAZOLE 500 MG/ISO 100ML 500 MG/100 ML BAG 100 MG IVPB ×2 (01:06→09:06)
[2021-09-11] MEDS: DEXTROSE 5%/0.9% SOD CHL 1,000 ML 100 ML IV CONT (01:09)
[2021-09-11] MEDS: KETOROLAC 30 MG/ML VIAL (*BKC) 15 MG IV PUSH (05:33)
[2021-09-11] MEDS: LANSOPRAZOLE ORAL SUSP 30 MG/10 ML ORAL.SUSP FEED TUBE (05:33)
[2021-09-11 06:00] VITALS: BP 122/62; PULSE 76; RESP 16; TEMP 36.2; O2SAT 100
[2021-09-11] MEDS: ASPIRIN 81 MG CHEWABLE TABLET FEED TUBE (09:05)
[2021-09-11] MEDS: SERTRALINE HCL 25 MG TABLET FEED TUBE (09:05)
[2021-09-11] MEDS: FERROUS SULFATE LIQUID 325 MG/7.4 ML ELIXIR 324 MG FEED TUBE ×2 (09:05→18:39)
[2021-09-11] MEDS: SENNOSIDES 8.8 MG/5 ML SYRUP 17.6 MG FEED TUBE (09:06)
--- NOTE | 2021-09-11 11:16 | PCDIET ---
Dietitian consult for bolus feedings. Jevity 1.2- 240 ml 4 x daily. Free water flush 100 ml with feedings. Current tube feeding providing 1152 kcals/53 gms protein/183 ml water. Meeting 95% of caloric needs and 100% protein needs. thank you for the consult.
--- NOTE | 2021-09-11 11:26 | PM.DS ---
DS: Admitting Diagnosis Discharge Date September 11, 2021 Admitting Diagnosis Nausea vomiting, pneumonia DS: Discharge Diagnosis Discharge Diagnosis (1) N&V (nausea and vomiting): Qualifiers: Vomiting type: unspecified Qualified Code(s): R11.2 - Nausea with vomiting, unspecified Code(s): R11.2 - Nausea with vomiting, unspecified Status: Acute Assessment and Plan: Improved (2) Aspiration pneumonia: Code(s): J69.0 - Pneumonitis due to inhalation of food and vomit Status: Acute Assessment and Plan: Status post antibiotics. The patient has been setup on tube feeds. (3) Community acquired pneumonia: Code(s): J18.9 - Pneumonia, unspecified organism Status: Acute Assessment and Plan: Seven days of antibiotics have been completed DS: Summary Hospital Course Hospital Course: Patient was admitted for aspiration pneumonia had significant dysphagia. Tube feeds were initiated during this hospitalization. She did receive 7 days of antibiotics while in the hospital. Respiratory status is at baseline. She is to be discharged today Time Spent with Patient Time attestation: Total time spent providing and/or coordinating discharge services: Exam Narrative: General: alert and oriented Psych: appropriate mood nad affect Eyes: PERRLA Neck: Trachea midline, no new lesions Skin: no changes Lungs: CTA Cardiac: Normal S1,S2, no MGR ABD: soft, nd, nt, nbs Ext: no new lesions, no cce Vasc: Pulses intact Discharge Plan Discharge Attending physician on discharge: Imer Acevedo Consulting providers: Enio Merrill Discharging Clinician: Imer Acevedo Patient Disposition: Home Health Service Activity: no shower Diet: as tolerated Discharge Instructions: Per care coordination: [facility] at discharge; please fax discharge orders to [phone] tube feeding supplies per [facility]. [facility] can be reached at [phone]. Patient Instructions: Antibiotic Form, Pain Management (DC) Stand Alone Forms: General Discharge Information Follow-up/Referrals: Enio Merrill MD [Physician] - Discharge Medications: New amoxicillin-pot clavulanate 875-125 mg tablet 1 tablet PO Q12H 3 Days Qty: 6 0RF Continued aspirin 81 mg Tablet,Delayed Release (Dr/Ec) 81 mg PO DAILY acetaminophen 650 mg Tablet 650 mg PO QID PRN (Reason: Pain) albuterol sulfate 5 mg/mL Solution For Nebulization 5 mg INHALATION Q4H PRN (Reason: Shortness Of Breath Or Wheezing) calcitriol 0.25 mcg Capsule 0.25 mcg PO 3XW Rx Instructions: Takes on Wed, Wed., Wednesday sennosides [Senna Lax] 8.6 mg Tablet 17.2 mg PO DAILY furosemide 20 mg Tablet 20 mg PO BID ferrous sulfate 324 mg (65 mg iron) tablet,delayed release (DR/EC) 324 mg PO BID Qty: 60 0RF pantoprazole 40 mg tablet,delayed release (DR/EC) 40 mg PO DAILY sertraline 25 mg tablet 25 mg PO DAILY Date of admission: 09/06/21 13:59 Primary Care Provider: BonifacioImer Admitting Provider: Jazzmine Linn Attending physician on admission: Jazzmine Linn Condition: Stable
[2021-09-11] MEDS: FUROSEMIDE INJ 40 MG/4 ML VIAL IV PUSH (11:46)
--- NOTE | 2021-09-11 13:49 | PM.IMPN ---
Progress Note: A&P Assessment and Plan (1) N&V (nausea and vomiting): Qualifiers: Vomiting type: unspecified Qualified Code(s): R11.2 - Nausea with vomiting, unspecified Code(s): R11.2 - Nausea with vomiting, unspecified Status: Acute Assessment and Plan: Improved (2) Aspiration pneumonia: Code(s): J69.0 - Pneumonitis due to inhalation of food and vomit Status: Acute Assessment and Plan: Status post antibiotics. The patient has been setup on tube feeds. (3) Community acquired pneumonia: Code(s): J18.9 - Pneumonia, unspecified organism Status: Acute Assessment and Plan: Seven days of antibiotics have been completed (4) Volume overload: Code(s): E87.70 - Fluid overload, unspecified Status: Acute Plan iv lasix x 1 Subjective Date/time seen: 09/11/21 13:49 no new issues Exam Narrative: General: alert and oriented Psych: appropriate mood nad affect Eyes: PERRLA Neck: Trachea midline, no new lesions Skin: no changes Lungs: CTA Cardiac: Normal S1,S2, no MGR ABD: soft, nd, nt, nbs Ext: no new lesions, no cce Vasc: Pulses intact Objective Data Vital Signs Vital Signs: Vital Signs - 24 hr 09/10/21 14:00 09/10/21 20:00 09/10/21 22:00 Temperature 97.3 F L 97.0 F L Pulse Rate 74 73 Respiratory Rate 18 16 Blood Pressure 149/62 H 122/60 Pulse Oximetry 97 97 100 Oxygen Delivery Nasal Cannula Oxygen Flow Rate 3 09/11/21 06:00 Temperature 97.1 F L Pulse Rate 76 Respiratory Rate 16 Blood Pressure 122/62 Pulse Oximetry 100 Oxygen Delivery Oxygen Flow Rate Intake/Output Intake/Output: Intake & Output 09/08/21 09/09/21 09/10/21 09/11/21 23:59 23:59 23:59 23:59 Intake Total 1600 2990 3437 900 Output Total 100 Balance 1600 2990 3337 900 Meds/Results Medications: Active Medications Generic Name Dose Route Start Last Admin Trade Name Freq PRN Reason Stop Dose Admin Acetaminophen 650 mg 09/07/21 14:19 09/10/21 09:52 Acetaminophen Elixir 325 Mg/10.15 Ml Udc FEED TUBE 650 mg QID PRN Administration Pain Rated 1-3 Albuterol 5 mg 09/05/21 03:32 Albuterol Sulfate Neb 2.5 Mg/0.5 Ml Inh INHALATION Q4H PRN Shortness Of Breath Or Wheezing Aspirin 81 mg 09/08/21 09:00 09/11/21 09:05 Aspirin 81 Mg Chewable Tablet FEED TUBE 81 mg DAILY PAYTON Administration Calcitriol 0.25 mcg 09/05/21 09:00 09/05/21 09:23 Calcitriol 0.25 Mcg Capsule PO 0.25 mcg MoWeFr@0900 PAYTON Administration Dextrose 12.5 gm 09/08/21 07:59 09/08/21 08:05 Dextrose 50% 25 Gm/50 Ml Syringe IV PUSH 12.5 gm PRN PRN Administration Hypoglycemia Protocol Ferrous Sulfate 324 mg 09/07/21 17:00 09/11/21 09:05 Ferrous Sulfate Liquid 325 Mg/7.4 Ml Elixir FEED TUBE 324 mg BIDWM PAYTON Administration Glucagon 1 mg 09/08/21 07:59 Glucagon For Inj 1 Mg Vial IM PRN PRN Hypoglycemia Protocol Glucose 15 gm 09/08/21 07:59 Glucose Oral Gel 15 Gm Of Glucse In 37.5 Gm Tube PO PRN PRN Hypoglycemia Protocol Hydromorphone HCl 0.5 mg 09/07/21 09:48 09/08/21 15:48 Hydromorphone Hcl Inj (*Crx) 1 Mg/Ml Syr IV PUSH 0.5 mg Q3H PRN Administration Pain Rated 7-10 Dextrose 1,000 mls @ 100 mls/hr 09/08/21 07:59 Dextrose 5% 1,000 Ml IVPB PRN PRN Hypoglycemia Protocol Ketorolac Tromethamine 15 mg 09/09/21 03:32 09/11/21 05:33 Ketorolac 30 Mg/Ml Vial (*Bkc) IV PUSH 15 mg Q6H PRN Administration Pain Rated 4-6 Lansoprazole 30 mg 09/10/21 06:30 09/11/21 05:33 Lansoprazole Oral Susp 30 Mg/10 Ml Oral.Susp FEED TUBE 30 mg DAILY@0630 PAYTON Administration Ondansetron HCl 4 mg 09/05/21 00:26 09/07/21 18:46 Ondansetron Inj 4 Mg/2 Ml Vial IV PUSH 4 mg Q4H PRN Administration Nausea Senna 17.6 mg 09/08/21 09:00 09/11/21 09:06 Sennosides 8.8 Mg/5 Ml Syrup FEED TUBE 17.6 mg
[2021-09-11 14:00] VITALS: BP 124/78; PULSE 78; RESP 20; TEMP 36.4; O2SAT 98
--- NOTE | 2021-09-11 14:19 | PCPTNOTE ---
PT attempted therapy this A.M., however patient needed cues to stay awake and on task with attempts to exercise lower extremities. Patient did perform limited reps with assist but would frequently fall asleep. PT will continue to follow per plan of care.
[2021-09-11 21:45] VITALS: BP 129/65; PULSE 81; RESP 18; TEMP 36.3; O2SAT 98
[2021-09-12] MEDS: HYDROmorphone HCL INJ (*CRX) 1 MG/ML SYR 0.5 MG IV PUSH (03:10)
[2021-09-12] MEDS: KETOROLAC 30 MG/ML VIAL (*BKC) 15 MG IV PUSH (05:11)
[2021-09-12] MEDS: LANSOPRAZOLE ORAL SUSP 30 MG/10 ML ORAL.SUSP FEED TUBE (05:12)
[2021-09-12 05:14] LABS: Glucose Point of Care 134 mg/dl (65-105)
[2021-09-12 05:38] VITALS: BP 145/82; PULSE 115; RESP 18; TEMP 35.8; O2SAT 94
[2021-09-12 07:33] VITALS: O2SAT 94
[2021-09-12 08:00] VITALS: O2SAT 94
[2021-09-12] MEDS: FERROUS SULFATE LIQUID 325 MG/7.4 ML ELIXIR 324 MG FEED TUBE ×2 (08:28→18:10)
[2021-09-12] MEDS: SENNOSIDES 8.8 MG/5 ML SYRUP 17.6 MG FEED TUBE (08:29)
[2021-09-12] MEDS: ASPIRIN 81 MG CHEWABLE TABLET FEED TUBE (08:30)
[2021-09-12] MEDS: SERTRALINE HCL 25 MG TABLET FEED TUBE (08:30)
--- NOTE | 2021-09-12 10:59 | PCNFU ---
Nutrition Follow-Up Complete: Inadequate energy intake related to swallowing difficulty as evidenced by failed MBS and NPO orders. Goal:Meet estimated needs Pt current nutrition is Tube feeds, Jevity 1.2. Nutrition recommendation: Bolus recommendation for 240ml bolus feeds 5x/day to provide 1440kcals, 66g protein, 968ml. Plus 100ml flush after each feed for a total of 1468ml free water. Last recorded weight is 48.9 kg - stable. Bowel Motility: +BM 09/11 Labs Reviewed:Hgb: 10.7, HCT:36.6, GFR:53, Glu:145 Meds Noted: Dilaudid, zofran Skin: WNL Additional Notes: Pt with new PEG tube placed. Recommendations for bolus feedings via tube. Agree with diet orders. Monitor tube feed, wt, labs. Follow up every Wednesday and Wednesday.
--- NOTE | 2021-09-12 11:03 | PCDIET ---
Addendum entered by Crystal Greenberg RD, LDN 09/12/21 13:02: Noted pt did not tolerated bolus feed of 240ml at this time. Recommendation to lower volume of feeding. Goal is 120ml of Jevity 1.2 q 2hrs and monitor tolerance. If pt continues to not tolerate, recommend switching back to continuous feeds at a rate of 55ml/hr over 22hrs. Also recommend considering addition of reglan. Original Note: Bolus recommendation for new PEG placement: Jevity 1.2, 240ml bolus feeds 5x/day, to provide 1440kcals, 66g protein, 968ml. Plus 100ml flush after each feed for a total of 1468ml free water.
--- NOTE | 2021-09-12 12:54 | PM.IMPN ---
Progress Note: A&P Assessment and Plan (1) N&V (nausea and vomiting): Qualifiers: Vomiting type: unspecified Qualified Code(s): R11.2 - Nausea with vomiting, unspecified Code(s): R11.2 - Nausea with vomiting, unspecified Status: Acute Assessment and Plan: nv w tf will add erythromycin (no regland 2/2 interaction w sertraline) dc pain medication talk w dietary about changing tf rate/schedule (2) Aspiration pneumonia: Code(s): J69.0 - Pneumonitis due to inhalation of food and vomit Status: Acute Assessment and Plan: Status post antibiotics. The patient has been setup on tube feeds. (3) Community acquired pneumonia: Code(s): J18.9 - Pneumonia, unspecified organism Status: Acute Assessment and Plan: Seven days of antibiotics have been completed (4) Volume overload: Code(s): E87.70 - Fluid overload, unspecified Status: Acute Assessment and Plan: improved Plan dc once able to tolerate tf Subjective Date/time seen: 09/12/21 12:54 emesis x2 Exam Narrative: General: alert and oriented Psych: appropriate mood nad affect Eyes: PERRLA Neck: Trachea midline, no new lesions Skin: no changes Lungs: CTA Cardiac: Normal S1,S2, no MGR ABD: soft, nd, nt, nbs Ext: no new lesions, no cce Vasc: Pulses intact Objective Data Vital Signs Vital Signs: Vital Signs - 24 hr 09/11/21 14:00 09/11/21 21:45 09/12/21 05:38 Temperature 97.6 F 97.3 F L 96.5 F L Pulse Rate 78 81 115 H Respiratory Rate 20 18 18 Blood Pressure 124/78 129/65 145/82 H Pulse Oximetry 98 98 94 Oxygen Delivery Oxygen Flow Rate 09/12/21 07:33 09/12/21 08:00 Temperature Pulse Rate Respiratory Rate Blood Pressure Pulse Oximetry 94 94 Oxygen Delivery Nasal Cannula Nasal Cannula Oxygen Flow Rate 3 3 Intake/Output Intake/Output: Intake & Output 09/09/21 09/10/21 09/11/21 09/12/21 23:59 23:59 23:59 23:59 Intake Total 2990 3437 1343 Output Total 100 Balance 2990 3337 1343 Meds/Results Medications: Active Medications Generic Name Dose Route Start Last Admin Trade Name Freq PRN Reason Stop Dose Admin Acetaminophen 650 mg 09/07/21 14:19 09/10/21 09:52 Acetaminophen Elixir 325 Mg/10.15 Ml Udc FEED TUBE 650 mg QID PRN Administration Pain Rated 1-3 Albuterol 5 mg 09/05/21 03:32 Albuterol Sulfate Neb 2.5 Mg/0.5 Ml Inh INHALATION Q4H PRN Shortness Of Breath Or Wheezing Aspirin 81 mg 09/08/21 09:00 09/12/21 08:30 Aspirin 81 Mg Chewable Tablet FEED TUBE 81 mg DAILY PAYTON Administration Calcitriol 0.25 mcg 09/05/21 09:00 09/05/21 09:23 Calcitriol 0.25 Mcg Capsule PO 0.25 mcg MoWeFr@0900 PAYTON Administration Dextrose 12.5 gm 09/08/21 07:59 09/08/21 08:05 Dextrose 50% 25 Gm/50 Ml Syringe IV PUSH 12.5 gm PRN PRN Administration Hypoglycemia Protocol Ferrous Sulfate 324 mg 09/07/21 17:00 09/12/21 08:28 Ferrous Sulfate Liquid 325 Mg/7.4 Ml Elixir FEED TUBE 324 mg BIDWM PAYTON Administration Glucagon 1 mg 09/08/21 07:59 Glucagon For Inj 1 Mg Vial IM PRN PRN Hypoglycemia Protocol Glucose 15 gm 09/08/21 07:59 Glucose Oral Gel 15 Gm Of Glucse In 37.5 Gm Tube PO PRN PRN Hypoglycemia Protocol Hydromorphone HCl 0.5 mg 09/07/21 09:48 09/12/21 03:10 Hydromorphone Hcl Inj (*Crx) 1 Mg/Ml Syr IV PUSH 0.5 mg Q3H PRN Administration Pain Rated 7-10 Dextrose 1,000 mls @ 100 mls/hr 09/08/21 07:59 Dextrose 5% 1,000 Ml IVPB PRN PRN Hypoglycemia Protocol Ketorolac Tromethamine 15 mg 09/09/21 03:32 09/12/21 05:11 Ketorolac 30 Mg/Ml Vial (*Bkc) IV PUSH 15 mg Q6H PRN Administration Pain Rated 4-6 Lansoprazole 30 mg 09/10/21 06:30 09/12/21 05:12 Lansoprazole Oral Susp 30 Mg/10 Ml Oral.Susp FEED TUBE 30 mg DAILY@0630 PAYTON Administration Ondansetron HCl 4 mg 07/22/2
[2021-09-12 14:20] VITALS: BP 127/66; PULSE 73; RESP 16; TEMP 36.4; O2SAT 100
[2021-09-12] MEDS: ERYTHROMYCIN 250 MG TABLET PO (18:10)
[2021-09-12 20:00] VITALS: O2SAT 100
[2021-09-12] MEDS: ACETAMINOPHEN ELIXIR 325 MG/10.15 ML UDC 650 MG FEED TUBE (20:22)
[2021-09-12] MEDS: ONDANSETRON INJ 4 MG/2 ML VIAL IV PUSH (20:22)
[2021-09-12 21:00] LABS: Glucose Point of Care 124 mg/dl (65-105)
--- NOTE | 2021-09-12 21:17 | PC.NURSE ---
Addendum entered by Crystal Arellano RN 09/12/21 22:32: gave another 120 mL at 21:30, not 21:00 Original Note: pt. moans in pain when given bolus feeding, decreased to 120 mL at 20:00 with 30 mL Flush. gave another 120 mL at 21:00 to equal 240 mL altogether with a 30 mL flush in hopes pt. will tolerate feeding with no emesis
[2021-09-12 22:00] VITALS: BP 111/63; PULSE 79; RESP 20; TEMP 36.4; O2SAT 100
[2021-09-13 06:00] VITALS: BP 136/71; PULSE 72; RESP 20; TEMP 36.6; O2SAT 100
[2021-09-13] MEDS: ACETAMINOPHEN ELIXIR 325 MG/10.15 ML UDC 650 MG FEED TUBE (06:00)
[2021-09-13] MEDS: LANSOPRAZOLE ORAL SUSP 30 MG/10 ML ORAL.SUSP FEED TUBE (06:01)
[2021-09-13 08:00] VITALS: PULSE 72; RESP 20; O2SAT 100
[2021-09-13] MEDS: FERROUS SULFATE LIQUID 325 MG/7.4 ML ELIXIR 324 MG FEED TUBE ×2 (09:14→17:32)
[2021-09-13] MEDS: SERTRALINE HCL 25 MG TABLET FEED TUBE (09:15)
[2021-09-13] MEDS: SENNOSIDES 8.8 MG/5 ML SYRUP 17.6 MG FEED TUBE (09:15)
[2021-09-13] MEDS: ASPIRIN 81 MG CHEWABLE TABLET FEED TUBE (09:15)
--- NOTE | 2021-09-13 11:52 | PM.IMPN ---
Progress Note: A&P Assessment and Plan (1) N&V (nausea and vomiting): Qualifiers: Vomiting type: unspecified Qualified Code(s): R11.2 - Nausea with vomiting, unspecified Code(s): R11.2 - Nausea with vomiting, unspecified Status: Acute Assessment and Plan: nv w tf will add erythromycin (no reglan 2/2 interaction w sertraline) dc pain medication talk w dietary about changing tf rate/schedule (2) Aspiration pneumonia: Code(s): J69.0 - Pneumonitis due to inhalation of food and vomit Status: Acute Assessment and Plan: Status post antibiotics. The patient has been setup on tube feeds. (3) Community acquired pneumonia: Code(s): J18.9 - Pneumonia, unspecified organism Status: Acute Assessment and Plan: Seven days of antibiotics have been completed (4) Volume overload: Code(s): E87.70 - Fluid overload, unspecified Status: Acute Assessment and Plan: improved Plan dc once able to tolerate tf Subjective Date/time seen: 09/13/21 11:52 New complaints Exam Narrative: General: alert and oriented Psych: appropriate mood nad affect Eyes: PERRLA Neck: Trachea midline, no new lesions Skin: no changes Lungs: CTA Cardiac: Normal S1,S2, no MGR ABD: soft, nd, nt, nbs Ext: no new lesions, no cce Vasc: Pulses intact Objective Data Vital Signs Vital Signs: Vital Signs - 24 hr 09/12/21 14:20 09/12/21 20:00 09/12/21 22:00 Temperature 97.5 F L 97.5 F L Pulse Rate 73 79 Respiratory Rate 16 20 Blood Pressure 127/66 111/63 Pulse Oximetry 100 100 100 Oxygen Delivery Nasal Cannula Oxygen Flow Rate 3 09/13/21 06:00 09/13/21 08:00 Temperature 97.9 F Pulse Rate 72 72 Respiratory Rate 20 20 Blood Pressure 136/71 Pulse Oximetry 100 100 Oxygen Delivery Nasal Cannula Oxygen Flow Rate 3 Intake/Output Intake/Output: Intake & Output 09/10/21 09/11/21 09/12/21 09/13/21 23:59 23:59 23:59 23:59 Intake Total 3437 1343 180 0 Output Total 100 Balance 3337 1343 180 0 Meds/Results Medications: Active Medications Generic Name Dose Route Start Last Admin Trade Name Freq PRN Reason Stop Dose Admin Acetaminophen 650 mg 09/07/21 14:19 09/13/21 06:00 Acetaminophen Elixir 325 Mg/10.15 Ml Udc FEED TUBE 650 mg QID PRN Administration Pain Rated 1-3 Albuterol 5 mg 09/05/21 03:32 Albuterol Sulfate Neb 2.5 Mg/0.5 Ml Inh INHALATION Q4H PRN Shortness Of Breath Or Wheezing Aspirin 81 mg 09/08/21 09:00 09/13/21 09:15 Aspirin 81 Mg Chewable Tablet FEED TUBE 81 mg DAILY PAYTON Administration Calcitriol 0.25 mcg 09/05/21 09:00 09/05/21 09:23 Calcitriol 0.25 Mcg Capsule PO 0.25 mcg MoWeFr@0900 PAYTON Administration Dextrose 12.5 gm 09/08/21 07:59 09/08/21 08:05 Dextrose 50% 25 Gm/50 Ml Syringe IV PUSH 12.5 gm PRN PRN Administration Hypoglycemia Protocol Ferrous Sulfate 324 mg 09/07/21 17:00 09/13/21 09:14 Ferrous Sulfate Liquid 325 Mg/7.4 Ml Elixir FEED TUBE 324 mg BIDWM PAYTON Administration Glucagon 1 mg 09/08/21 07:59 Glucagon For Inj 1 Mg Vial IM PRN PRN Hypoglycemia Protocol Glucose 15 gm 09/08/21 07:59 Glucose Oral Gel 15 Gm Of Glucse In 37.5 Gm Tube PO PRN PRN Hypoglycemia Protocol Dextrose 1,000 mls @ 100 mls/hr 09/08/21 07:59 Dextrose 5% 1,000 Ml IVPB PRN PRN Hypoglycemia Protocol Lansoprazole 30 mg 09/10/21 06:30 09/13/21 06:01 Lansoprazole Oral Susp 30 Mg/10 Ml Oral.Susp FEED TUBE 30 mg DAILY@0630 PAYTON Administration Erythromycin 125mg 1 each 09/13/21 11:30 Tablet PO 10/13/21 11:29 AC [facility] Ondansetron HCl 4 mg 09/05/21 00:26 09/12/21 20:22 Ondansetron Inj 4 Mg/2 Ml Vial IV PUSH 4 mg Q4H PRN Administration Nausea Senna 17.6 mg 09/08/21 09:00 09/13/21 09:15 Sennosides 8.8 Mg/5 Ml Syrup FEED TUBE 17.6 mg DAILY PAYTON Admini
[2021-09-13 14:00] VITALS: BP 118/55; PULSE 78; RESP 20; TEMP 36.3; O2SAT 100
[2021-09-13 15:23] VITALS: O2SAT 97
[2021-09-13 20:00] VITALS: O2SAT 98
[2021-09-13 22:00] VITALS: BP 119/56; PULSE 78; RESP 16; TEMP 36.8; O2SAT 98
[2021-09-14] MEDS: ACETAMINOPHEN ELIXIR 325 MG/10.15 ML UDC 650 MG FEED TUBE ×3 (01:00→17:45)
[2021-09-14 01:02] LABS: Glucose Point of Care 111 mg/dl (65-105)
[2021-09-14 06:00] VITALS: BP 133/73; PULSE 81; RESP 14; TEMP 36.1; O2SAT 98
[2021-09-14] MEDS: LANSOPRAZOLE ORAL SUSP 30 MG/10 ML ORAL.SUSP FEED TUBE (06:04)
[2021-09-14 06:27] LABS: Basophils Percent Auto 0.7 % (0.2-1.2); Eosinophils Absolute Auto 0.2 K/mm3 (0-0.3); Hematocrit 34.9 % (37.0-47.0); Hemoglobin 11.1 g/dL (12.0-15.0); Immature Granulocyte Absolute 0.02 K/mm3 (0.00-0.031); Immature Granulocyte Percent A 0.4 % (0-0.5); Lymphocytes Absolute Auto 0.95 K/mm3 (0.9-3.2); Lymphocytes Percent Auto 20.9 % (18.3-44.2); Mean Corpuscular HGB Conc 31.8 g/dl (32-36); Mean Corpuscular Hemoglobin 33.2 pg (26-34); Mean Corpuscular Volume 104.5 fl (80-100); Mean Platelet Volume 9.2 fl (7.4-10.4); Monocytes Absolute Auto 0.4 K/mm3 (0.1-0.6); Monocytes Percent Auto 8.1 % (2.6-8.5); Neutrophils Percent Auto 65.9 % (45.5-73.1); Platelet Count Result 188 k/mm3 (150-375); Red Blood Count 3.34 M/mm3 (4.2-5.4); Red Cell Distribution Width 13.2 % (11.5-14.5); White Blood Count 4.5 K/mm3 (4.5-10.0)
[2021-09-14 06:30] LABS: Anion Gap 3 mmol/L (8-16); Blood Urea Nitrogen 18 mg/dL (7-17); Calcium 8.1 mg/dL (8.4-10.2); Carbon Dioxide 26 mmol/L (22-30); Chloride 106 mmol/L (98-107); Estimated CRCL calculation 28 ml/min; Estimated Glomerular Filt Rate 53; Glucose 91 mg/dL (65-110); Potassium 4.7 mmol/L (3.4-5.0); Sodium 135 mmol/L (137-145)
[2021-09-14 08:00] VITALS: PULSE 81; RESP 14; O2SAT 94
[2021-09-14] MEDS: FUROSEMIDE INJ 40 MG/4 ML VIAL IV PUSH (08:59)
[2021-09-14] MEDS: SENNOSIDES 8.8 MG/5 ML SYRUP 17.6 MG FEED TUBE (08:59)
[2021-09-14] MEDS: FERROUS SULFATE LIQUID 325 MG/7.4 ML ELIXIR 324 MG FEED TUBE ×2 (09:00→17:47)
[2021-09-14] MEDS: ASPIRIN 81 MG CHEWABLE TABLET FEED TUBE (09:02)
[2021-09-14] MEDS: SERTRALINE HCL 25 MG TABLET FEED TUBE (09:03)
[2021-09-14 09:17] VITALS: O2SAT 94
--- NOTE | 2021-09-14 09:59 | PM.IMPN ---
Progress Note: A&P Assessment and Plan (1) N&V (nausea and vomiting): Qualifiers: Vomiting type: unspecified Qualified Code(s): R11.2 - Nausea with vomiting, unspecified Code(s): R11.2 - Nausea with vomiting, unspecified Status: Acute Assessment and Plan: nv w tf will add erythromycin (no reglan 2/2 interaction w sertraline) dc pain medication talk w dietary about changing tf rate/schedule (2) Aspiration pneumonia: Code(s): J69.0 - Pneumonitis due to inhalation of food and vomit Status: Acute Assessment and Plan: Status post antibiotics. The patient has been setup on tube feeds. (3) Community acquired pneumonia: Code(s): J18.9 - Pneumonia, unspecified organism Status: Acute Assessment and Plan: Seven days of antibiotics have been completed (4) Volume overload: Code(s): E87.70 - Fluid overload, unspecified Status: Acute Assessment and Plan: improved Plan dc once able to tolerate tf Subjective Date/time seen: 09/14/21 09:59 No complaints Exam Narrative: General: alert and oriented Psych: appropriate mood nad affect Eyes: PERRLA Neck: Trachea midline, no new lesions Skin: no changes Lungs: CTA Cardiac: Normal S1,S2, no MGR ABD: soft, nd, nt, nbs Ext: no new lesions, no cce Vasc: Pulses intact Objective Data Vital Signs Vital Signs: Vital Signs - 24 hr 09/13/21 14:00 09/13/21 15:23 09/13/21 22:00 Temperature 97.4 F L 98.3 F Pulse Rate 78 78 Respiratory Rate 20 16 Blood Pressure 118/55 L 119/56 L Pulse Oximetry 100 97 98 Oxygen Delivery Nasal Cannula Oxygen Flow Rate 3 09/13/21 20:00 09/14/21 06:00 09/14/21 09:17 Temperature 97 F L Pulse Rate 81 Respiratory Rate 14 Blood Pressure 133/73 Pulse Oximetry 98 98 94 Oxygen Delivery Nasal Cannula Nasal Cannula Oxygen Flow Rate 3 3 Intake/Output Intake/Output: Intake & Output 09/11/21 09/12/21 09/13/21 09/14/21 23:59 23:59 23:59 23:59 Intake Total 1343 180 0 Balance 1343 180 0 Meds/Results Medications: Active Medications Generic Name Dose Route Start Last Admin Trade Name Freq PRN Reason Stop Dose Admin Acetaminophen 650 mg 09/07/21 14:19 09/14/21 09:10 Acetaminophen Elixir 325 Mg/10.15 Ml Udc FEED TUBE 650 mg QID PRN Administration Pain Rated 1-3 Albuterol 5 mg 09/05/21 03:32 Albuterol Sulfate Neb 2.5 Mg/0.5 Ml Inh INHALATION Q4H PRN Shortness Of Breath Or Wheezing Aspirin 81 mg 09/08/21 09:00 09/14/21 09:02 Aspirin 81 Mg Chewable Tablet FEED TUBE 81 mg DAILY PAYTON Administration Calcitriol 0.25 mcg 09/05/21 09:00 09/05/21 09:23 Calcitriol 0.25 Mcg Capsule PO 0.25 mcg MoWeFr@0900 PAYTON Administration Dextrose 12.5 gm 09/08/21 07:59 09/08/21 08:05 Dextrose 50% 25 Gm/50 Ml Syringe IV PUSH 12.5 gm PRN PRN Administration Hypoglycemia Protocol Ferrous Sulfate 324 mg 09/07/21 17:00 09/14/21 09:00 Ferrous Sulfate Liquid 325 Mg/7.4 Ml Elixir FEED TUBE 324 mg BIDWM PAYTON Administration Glucagon 1 mg 09/08/21 07:59 Glucagon For Inj 1 Mg Vial IM PRN PRN Hypoglycemia Protocol Glucose 15 gm 09/08/21 07:59 Glucose Oral Gel 15 Gm Of Glucse In 37.5 Gm Tube PO PRN PRN Hypoglycemia Protocol Dextrose 1,000 mls @ 100 mls/hr 09/08/21 07:59 Dextrose 5% 1,000 Ml IVPB PRN PRN Hypoglycemia Protocol Lansoprazole 30 mg 09/10/21 06:30 09/14/21 06:04 Lansoprazole Oral Susp 30 Mg/10 Ml Oral.Susp FEED TUBE 30 mg DAILY@0630 PAYTON Administration Erythromycin 125mg 1 each 09/13/21 11:30 09/14/21 06:04 Tablet PO 10/13/21 11:29 1 each AC PAYTON Administration Ondansetron HCl 4 mg 09/05/21 00:26 09/12/21 20:22 Ondansetron Inj 4 Mg/2 Ml Vial IV PUSH 4 mg Q4H PRN Administration Nausea Senna 17.6 mg 09/08/21 09:00 09/14/21 08:59 Sennosides 8.8 Mg/5 Ml Syrup F
[2021-09-14 14:00] VITALS: BP 124/56; PULSE 73; RESP 20; TEMP 36.3; O2SAT 98
[2021-09-14 20:00] VITALS: O2SAT 98
[2021-09-14 21:47] VITALS: BP 133/81; PULSE 80; RESP 20; TEMP 36.4; O2SAT 98
[2021-09-15] VITALS (8 sets, daily range): BP systolic 104–135; BP diastolic 50–79; PULSE 73–92; RESP 16–20; TEMP 36.1–36.3; O2SAT 93–99
[2021-09-15] MEDS: ALBUTEROL SULFATE NEB 2.5 MG/0.5 ML INH 5 MG INHALATION (02:42)
[2021-09-15] MEDS: LANSOPRAZOLE ORAL SUSP 30 MG/10 ML ORAL.SUSP FEED TUBE (06:19)
[2021-09-15] MEDS: ASPIRIN 81 MG CHEWABLE TABLET FEED TUBE (08:57)
[2021-09-15] MEDS: SERTRALINE HCL 25 MG TABLET FEED TUBE (08:57)
[2021-09-15] MEDS: FERROUS SULFATE LIQUID 325 MG/7.4 ML ELIXIR 324 MG FEED TUBE ×2 (08:57→17:04)
[2021-09-15] MEDS: SENNOSIDES 8.8 MG/5 ML SYRUP 17.6 MG FEED TUBE (08:58)
[2021-09-15] MEDS: ACETAMINOPHEN ELIXIR 325 MG/10.15 ML UDC 650 MG FEED TUBE ×2 (08:58→13:03)
--- NOTE | 2021-09-15 12:18 | PM.DS ---
DS: Admitting Diagnosis Discharge Date September 15, 2021 Admitting Diagnosis Dysphagia, nausea DS: Discharge Diagnosis Discharge Diagnosis (1) N&V (nausea and vomiting): Qualifiers: Vomiting type: unspecified Qualified Code(s): R11.2 - Nausea with vomiting, unspecified Code(s): R11.2 - Nausea with vomiting, unspecified Status: Acute Assessment and Plan: nv w tf will add erythromycin (no reglan 2/2 interaction w sertraline) dc pain medication talk w dietary about changing tf rate/schedule (2) Aspiration pneumonia: Code(s): J69.0 - Pneumonitis due to inhalation of food and vomit Status: Acute Assessment and Plan: Status post antibiotics. The patient has been setup on tube feeds. 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 She is admitted for aspiration pneumonia and treated with antibiotics and did exceptionally well. G-tube was ultimately placed with tube feeds she which she is tolerating. Time Spent with Patient Time attestation: Total time spent providing and/or coordinating discharge services: Exam Narrative: General: alert and oriented Psych: appropriate mood nad affect Eyes: PERRLA Neck: Trachea midline, no new lesions Skin: no changes Lungs: CTA Cardiac: Normal S1,S2, no MGR ABD: soft, nd, nt, nbs Ext: no new lesions, no cce Vasc: Pulses intact Discharge Plan Discharge Attending physician on discharge: Imer Acevedo Consulting providers: Enio Merrill Discharging Clinician: Imer Acevedo Patient Disposition: Home Health Service Activity: no shower Diet: as tolerated Discharge Instructions: Per care coordination: [facility] at discharge; please fax discharge orders to [phone] tube feeding supplies per [facility]. [facility] can be reached at [phone]. Patient Instructions: Antibiotic Form, Pain Management (DC) Stand Alone Forms: General Discharge Information Follow-up/Referrals: Enio Merrill MD [Physician] - Discharge Medications: New amoxicillin-pot clavulanate 875-125 mg tablet 1 tablet PO Q12H 3 Days Qty: 6 0RF Continued aspirin 81 mg Tablet,Delayed Release (Dr/Ec) 81 mg PO DAILY acetaminophen 650 mg Tablet 650 mg PO QID PRN (Reason: Pain) albuterol sulfate 5 mg/mL Solution For Nebulization 5 mg INHALATION Q4H PRN (Reason: Shortness Of Breath Or Wheezing) calcitriol 0.25 mcg Capsule 0.25 mcg PO 3XW Rx Instructions: Takes on Wed, Wed., Wednesday sennosides [Senna Lax] 8.6 mg Tablet 17.2 mg PO DAILY furosemide 20 mg Tablet 20 mg PO BID ferrous sulfate 324 mg (65 mg iron) tablet,delayed release (DR/EC) 324 mg PO BID Qty: 60 0RF pantoprazole 40 mg tablet,delayed release (DR/EC) 40 mg PO DAILY sertraline 25 mg tablet 25 mg PO DAILY Date of admission: 09/06/21 13:59 Primary Care Provider: BonifacioImer Admitting Provider: Jazzmine Lnin Attending physician on admission: Jazzmine Linn Condition: Stable
--- NOTE | 2021-09-15 12:25 | PCDIET ---
Pt is up to goal on tube feeds, 240ml 5x/day and tolerating fairly well. Possible d/c today. Recommendation is to continue same tube feeding rate upon discharge.
--- NOTE | 2021-09-15 12:48 | HOMEO2EVAL ---
Evaluation was performed at [facility] Home Oxygen Evaluation RC: Home Oxygen (O2) Evaluation Start: 09/15/21 11:05 Freq: ONCE Status: Active Protocol: RPE Activity Type Activity Date Activity User E-sign Co-sign Detail Recorded Client Recorded Date Recorded By Document 09/15/21 11:50 KRM [id number] 09/15/21 12:48 KRM Document 09/15/21 12:00 KRM [email or web address] 09/15/21 12:48 KRM 09/15/21 09/15/21 11:50 12:00 Home O2 Evaluation Test Phase Resting Resting Oxygen Delivery Room Air Room Air Pulse Oximetry (90-100 %) 95 95 Pulse Rate (60-100 beats/min) 74 73 Home Oxygen Evaluation Comments PT. UNABLE TO AMULATE AT THIS TIME. RN AWARE. Treatment Charges O2 Evaluation - Inpatient
[2021-09-15] MEDS: CYANOCOBALAMIN INJ 1,000 MCG/ML VIAL 1000 MCG IM (17:03)
== END 2021-09-15 18:05 | disposition home health service (06) | DRG 178 ==
LOC: ANHED 22:11 → ANH3MEDSUR 09-05 00:50
PROVIDERS: Emergency Medicine; Family Medicine; Internal Medicine Gastroenterology; Admitting Provider Student in an Organized Health Care Education/Training Program; Emergency Provider Emergency Medicine; PCP Internal Medicine; Visit Provider Chiropractor
PROC: 0DJ08ZZ Inspection of Upper Intestinal Tract, Via Natural or Artificial Opening Endoscopic (ICD-10-PCS; CPT 43235; principal; 2021-09-09 14:30)
PROC: 0DH63UZ Insertion of Feeding Device into Stomach, Percutaneous Approach (ICD-10-PCS; CPT 43246; 2021-09-09 14:30)
DX: J69.0 Pneumonitis due to inhalation of food and vomit (principal); I13.0 Hypertensive heart and chronic kidney disease with heart failure and stage 1 through stage 4 chronic kidney disease, or unspecified chronic kidney disease; J18.9 Pneumonia, unspecified organism; E11.22 Type 2 diabetes mellitus with diabetic chronic kidney disease; N18.9 Chronic kidney disease, unspecified; I50.9 Heart failure, unspecified; K29.70 Gastritis, unspecified, without bleeding; R13.19 Other dysphagia; E11.649 Type 2 diabetes mellitus with hypoglycemia without coma; Z20.822 Contact with and (suspected) exposure to COVID-19; I25.10 Atherosclerotic heart disease of native coronary artery without angina pectoris; E78.5 Hyperlipidemia, unspecified; F41.8 Other specified anxiety disorders; K59.00 Constipation, unspecified; D50.9 Iron deficiency anemia, unspecified; I69.320 Aphasia following cerebral infarction; I69.331 Monoplegia of upper limb following cerebral infarction affecting right dominant side; Z95.5 Presence of coronary angioplasty implant and graft
CPT/HCPCS: 36415; 43246; 51701; 70450; 70496; 71045; 74018; 80048; 80053; 81003; 82948; 84484; 85025; 85027; 85055; 85610; 85730; 92610; 92611; 93005; 94618; 94640; 96361; 96365; 96366; 96367; 96368; 96375; 97110; 97162; 97165; 97530; 99285; A9270; C9803; G0378; J0131; J0456; J0690; J0696; J1170; J1885; J1940; J2405; J2704; J3420; J7030; J7042; J7120; Q9967; U0003; U0005

== ENCOUNTER 2022-01-22 09:39 | Emergency (ER) | payer MEDICARE, SELFPAY ==
[2022-01-22] VITALS (10 sets, daily range): BP systolic 132–145; BP diastolic 72–114; PULSE 78–115; RESP 18–28; TEMP 36.7; O2SAT 96–99
--- NOTE | ~2022-01-22 | XR_ITS ---
EXAMINATION: XR chest 1V portable DATE: 01/22/2022 10:13 INDICATION: Shortness of breath. Possible aspiration. TECHNIQUE: frontal view of the chest was obtained. COMPARISON: Chest radiograph dated 09/14/21 FINDINGS: Opacities at the bilateral mid and lower lung zones. Blunting at the costophrenic angles consistent w ith small bilateral pleural effusions. No pneumothorax. Heart size is normal. Change of prior coronar y artery stenting. Dual lead pacemaker/AICD seen with leads projecting over the expected locations of the right atrium and right ventricle. IMPRESSION: 1. Opacities in the bilateral mid and lower lung zones consistent with small bilateral pleural effusi ons and associated atelectasis, aspiration, pneumonia or some combination thereof. Reviewed, dictated and finalized at location A. Y OPERATOR IMPRESSION: 1. Opacities in the bilateral mid and lower lung zones consistent with small bi lateral pleural effusions and associated atelectasis, aspiration, pneumonia or some combination thereof.
--- NOTE | 2022-01-22 11:05 | ED.SOB ---
HPI - SOB/Dyspnea General Chief Complaint: Shortness of Breath/Dyspnea Stated Complaint: ?Poss aspiration Time Seen by Provider: 01/22/22 10:45 Source: family and EMS Mode of arrival: EMS Limitations: physical limitation and clinical condition History of Present Illness HPI Narrative: 81 years old white female came to the emergency room from home by ambulance with her daughter from home who is telling me that patient was having NG tube feeding, started choking and vomiting and aspirating. History of CVA with aphasia, history of aspiration pneumonia, hypertension, CKD, diabetes, congestive heart failure. Patient is DNR. Patient is not on oxygen at home, have nebulizer treatment at home, pacemaker, skin tears of the right upper extremity. Daughter is at the bedside who have below-knee amputation, wheelchair-bound, unable to take care of her mom at this time. Related Data Home Medications Medication Instructions Recorded Confirmed acetaminophen 650 mg tablet 650 mg PO QID PRN Pain 02/03/21 09/05/21 albuterol sulfate 5 mg/mL(0.5 %) 5 mg inhalation Q4H PRN Shortness 02/03/21 09/05/21 solution for nebulization Of Breath Or Wheezing aspirin 81 mg tablet,delayed 81 mg PO DAILY 02/03/21 09/05/21 release calcitriol 0.25 mcg capsule 0.25 mcg PO 3XW 02/03/21 09/05/21 furosemide 20 mg tablet 20 mg PO BID 02/03/21 09/05/21 sennosides 8.6 mg tablet (Senna 17.2 mg PO DAILY 02/03/21 09/05/21 Lax) pantoprazole 40 mg tablet,delayed 40 mg PO DAILY 09/05/21 09/05/21 release sertraline 25 mg tablet 25 mg PO DAILY 09/05/21 09/05/21 Allergies Allergy/AdvReac Type Severity Reaction Status Date / Time codeine Allergy Unknown Verified 02/03/21 13:37 hydrocodone Allergy Unknown Verified 02/03/21 13:37 morphine Allergy Unknown Verified 02/03/21 13:37 [id number]-[id number] Reductase Allergy Unknown Verified 02/03/21 13:37 Inhibitor Review of Systems Review of Systems: ROS unobtainable: Yes unobtainable due to medical condition PMFSH Past Medical History Medical History Anemia Aphasia as late effect of cerebrovascular accident CAD (coronary artery disease) Cardiac defibrillator in place Chronic kidney disease Compression fx, thoracic spine Congestive heart failure DM2 (diabetes mellitus, type 2) Hyperlipidemia Hypertension Surgical History Surgical History H/O heart artery stent Family History Family History Unknown Unknown family medical history Social History Social History Social History: according to the patient's face sheet she is retired. She has 2 daughters listed under her contacts. She is from [facility]. Patient is listed as a full code. Smoking status: Never smoker Alcohol intake: never Substance use: never Spiritual care concerns: No Exam Narrative: General appearance: Well-developed, well-nourished, tachypneic Skin: Multiple skin tears of the right upper extremity, 2+ edema upper extremities Head: Normocephalic, nontraumatic Eyes: Clear conjunctiva ENT: Oropharynx normal, ears normal, nose normal Neck: Supple, nontender Chest and respiratory: Diminution of air entry bilaterally, tachypnea Heart: Regular rate/rhythm Abdomen: Soft, nontender, no organomegaly, quiet bowel sounds Vascular: Normal peripheral pulses, normal capillary refill. Musculoskeletal: Normal range of motion, nontender back Neurologic: Alert, aphasic, able to answer yes or no. Can follow commands Course Vital Signs
[2022-01-22 11:28] LABS: Alveolar/Arterial O2 Gradient 28.9 mmHg; Base Excess ABG -0.1 mEq/l (+/-2.0); Device ROOM AIR; Fractional Inspired Oxygen 21 %; HCO3 ABG 24.1 mEq/l (22.0-26.0); Modified Allen's Test Pass; Oxygen Content ABG 18.1 %vol (16.0-22.0); Oxygen Saturation ABG 95.5 % (95.0-100.0); PCO2 ABG 37.6 mmHg (35.0-45.0); PO2 ABG 75.8 mmHg (80.0-100.0); PO2 FiO2 Ratio Arterial Blood 3.61 %; Site Drawn LEFT RADIAL; Total Hemoglobin 13.8 g/dL (12.0-18.0); pH ABG 7.424 (7.350-7.450)
[2022-01-22 11:32] LABS: Basophils Percent Auto 0.5 % (0.2-1.2); Eosinophils Absolute Auto 0.1 K/mm3 (0-0.3); Eosinophils Percent Auto 0.9 % (0-4.4); Hematocrit 40.9 % (37.0-47.0); Immature Granulocyte Absolute 0.04 K/mm3 (0.00-0.031); Immature Granulocyte Percent A 0.5 % (0-0.5); Lymphocytes Absolute Auto 0.66 K/mm3 (0.9-3.2); Lymphocytes Percent Auto 8.7 % (18.3-44.2); Mean Corpuscular HGB Conc 31.8 g/dl (32-36); Mean Corpuscular Hemoglobin 33.9 pg (26-34); Mean Corpuscular Volume 106.5 fl (80-100); Mean Platelet Volume 10.3 fl (7.4-10.4); Monocytes Absolute Auto 0.6 K/mm3 (0.1-0.6); Monocytes Percent Auto 7.3 % (2.6-8.5); Neutrophils Absolute Auto 6.2 K/mm3 (1.3-6.7); Neutrophils Percent Auto 82.1 % (45.5-73.1); Platelet Count Result 201 k/mm3 (150-375); Red Blood Count 3.84 M/mm3 (4.2-5.4); Red Cell Distribution Width 14.6 % (11.5-14.5); White Blood Count 7.6 K/mm3 (4.5-10.0)
[2022-01-22 11:38] LABS: Alanine Aminotransferase 34 U/L (6-35); Albumin Level 3.7 g/dL (3.5-5.1); Alkaline Phosphatase 136 U/L (38-126); Anion Gap 9 mmol/L (8-16); Aspartate Amino Transferase 35 U/L (14-36); Bilirubin,Total 0.9 mg/dL (0.2-1.3); Blood Urea Nitrogen 44 mg/dL (7-17); Calcium 8.7 mg/dL (8.4-10.2); Carbon Dioxide 26 mmol/L (22-30); Chloride 99 mmol/L (98-107); Estimated CRCL calculation 33 ml/min; Estimated Glomerular Filt Rate 53; Glucose 236 mg/dL (65-110); Potassium 5.2 mmol/L (3.4-5.0); Sodium 134 mmol/L (137-145)
[2022-01-22 12:33] LABS: Influenza A QL RT-PCR Negative (Negative); Influenza B QL RT-PCR Negative (Negative); RSV RNA, RT-PCR Negative (Negative); SARS-CoV-2 RNA PCR Negative
[2022-01-22 13:03] LABS: INR 1.2; Partial Thromboplastin Time 27.1 SECONDS (22.3-36.8); Prothrombin Time 14.7 Seconds (11.1-14.7)
--- NOTE | 2022-01-22 13:57 | PC.NURSE ---
records section supervisor spoke with pts daughter Symone at . She is aware of patient being admitted to [facility].
--- NOTE | 2022-01-22 14:01 | PC.NURSE ---
report called to aba Ortiz at [facility] second floor. ems called for transport
--- NOTE | 2022-01-22 14:29 | PC.NURSE ---
bls transfer to [facility] - declined no truck [facility] - declined no truck [facility] - declined no truck 1406 - [facility] accepted eta 45min
[2022-01-22] MEDS: ALBUTEROL SULFATE NEB 2.5 MG/3 ML INH 5 MG INHALATION (15:00)
--- NOTE | 2022-01-22 15:26 | PC.NURSE ---
[facility] Updated ETA [id number]
== END 2022-01-22 16:21 | disposition critical access hospital (66) ==
PROVIDERS: Emergency Provider Emergency Medicine; PCP Internal Medicine
DX: J69.0 Pneumonitis due to inhalation of food and vomit (principal); E11.65 Type 2 diabetes mellitus with hyperglycemia; E87.5 Hyperkalemia; Z20.822 Contact with and (suspected) exposure to COVID-19; I69.920 Aphasia following unspecified cerebrovascular disease; E11.22 Type 2 diabetes mellitus with diabetic chronic kidney disease; I12.9 Hypertensive chronic kidney disease with stage 1 through stage 4 chronic kidney disease, or unspecified chronic kidney disease; N18.9 Chronic kidney disease, unspecified; I13.0 Hypertensive heart and chronic kidney disease with heart failure and stage 1 through stage 4 chronic kidney disease, or unspecified chronic kidney disease; I50.9 Heart failure, unspecified; I25.10 Atherosclerotic heart disease of native coronary artery without angina pectoris; E78.5 Hyperlipidemia, unspecified; Z95.0 Presence of cardiac pacemaker; Z95.5 Presence of coronary angioplasty implant and graft; Z66 Do not resuscitate; Z86.2 Personal history of diseases of the blood and blood-forming organs and certain disorders involving the immune mechanism; Z79.82 Long term (current) use of aspirin
CPT/HCPCS: 36415; 36600; 71045; 80053; 82805; 83605; 85025; 85610; 85730; 87040; 87637; 94640; 96365; 96367; 99285; J0131; J1956; J2543

== ENCOUNTER 2022-01-22 17:25 | Observation (INO) | payer MEDICARE, SELFPAY ==
--- NOTE | ~2022-01-22 | XR_ITS ---
EXAMINATION: XR chest 1V portable DATE: 01/24/2022 08:35 INDICATION: Pneumonia TECHNIQUE: frontal view of the chest was obtained. COMPARISON: Chest radiograph dated 01/22/22 FINDINGS: Increasing gradient of hazy basilar predominant airspace opacity in the bilateral mid and lower lung zones consistent with increasing small bilateral posterior layering pleural effusions. Patchy airspac e opacities in the right mid and upper lung zone and retrocardiac consolidation the left lower lung z one which could represent pneumonia or atelectasis. No pneumothorax. Increased prominence of the bila teral lindsay which could represent enlargement of the central pulmonary arteries suggesting pulmonary a rterial hypertension or lymphadenopathy. Cardiomegaly with change of prior coronary artery stenting. Dual lead pacemaker/AICD seen with leads projecting over the expected locations of the right atrium a nd right ventricle. IMPRESSION: 1. Opacities in the right upper and bilateral lower lobe zones which could represent atelectasis and/ or pneumonia. 2. Small bilateral pleural effusions. 3. Cardiomegaly. 4. Increased prominence of the bilateral lindsay which could be related to enlargement of the central pu lmonary arteries in the setting of pulmonary arterial hypertension or lymphadenopathy be reactive, me tastatic disease or lymphoma. Consider further evaluation with contrast-enhanced chest CT when clinic ally appropriate. Reviewed, dictated and finalized at location A. H CRYSTAL GRINDER IMPRESSION: 1. Opacities in the right upper and bilateral lower lobe zones which could repr esent atelectasis and/or pneumonia. 2. Small bilateral pleural effusions. 3. Cardiomegaly. 4. Increased prominence of the bilateral lindsay which could be related to enlarge ment of the central pulmonary arteries in the setting of pulmonary arterial hyp ertension or lymphadenopathy be reactive, metastatic disease or lymphoma. Consi malika further evaluation with contrast-enhanced chest CT when clinically appropri ate.
[2022-01-22 17:42] VITALS: BP 111/72; PULSE 88; RESP 19; TEMP 36.3; O2SAT 93
[2022-01-22 17:50] VITALS: BMI 24.3
--- NOTE | 2022-01-22 17:56 | ADMGEN ---
This patient, Emely Candelario, was admitted to 2nd Floor Room 206-1. Pt's daughter Teri called and updated on arrival. Teri given information regarding visiting hours and expectations of care overnight. All questions answered at this time. Pt nonverbal, but acknowledge understanding of plan of care.
[2022-01-22 20:00] VITALS: PULSE 88; RESP 19; O2SAT 93
[2022-01-22] MEDS: ACETAMINOPHEN 325 MG TABLET 650 MG FEED TUBE (20:17)
[2022-01-22] MEDS: HEPARIN SODIUM 5,000 UNITS/ML VIAL 5000 UNITS SUB-Q (20:17)
--- NOTE | 2022-01-22 21:30 | PC.NURSE ---
Patient admitted with right arm wrapped d/t skin tears, dressings noted to with serosanguanous drainage. Dressings removed, skin tears measured, new dressings applied of xeroform, abd pad and wrapped loosely with kerlix. Patient moaned during procedure, when asked if she had pain to arm she states yes , PRN tylenol previously administered.
[2022-01-23] VITALS: BP 119/72; PULSE 95; RESP 18; TEMP 36.7; O2SAT 94
[2022-01-23] MEDS: ACETAMINOPHEN 325 MG TABLET 650 MG FEED TUBE ×3 (00:33→17:17)
[2022-01-23 05:45] LABS: Hematocrit 37.1 % (35.0-42.0); Mean Corpuscular HGB Conc 32.3 g/dL (32.0-36.0); Mean Corpuscular Hemoglobin 33.7 pg (27.0-31.0); Mean Corpuscular Volume 104.2 fL (78.0-102.0); Mean Platelet Volume 10.6 fl (9.2-11.8); Platelet Count Result 177 K/mm3 (150-420); Red Blood Count 3.56 M/mm3 (4.20-5.40); Red Cell Distribution Width 14.4 % (11.6-14.4); White Blood Count 6.5 K/mm3 (4.8-10.8)
[2022-01-23 05:57] LABS: Anion Gap 10 mmol/L (8-16); Blood Urea Nitrogen 48 mg/dL (7-18); Calcium 8.8 mg/dL (8.5-10.1); Carbon Dioxide 27 mmol/L (21-32); Chloride 100 mmol/L (98-108); Estimated CRCL calculation 24 ml/min; Estimated Glomerular Filt Rate 39; Glucose 195 mg/dL (70-99); Osmolality Calculated 301 mOsm/kg (285-295); Potassium 5.3 mmol/L (3.5-5.1); Sodium 137 mmol/L (136-145)
[2022-01-23 08:00] VITALS: BP 112/72; PULSE 91; RESP 17; TEMP 36.2; O2SAT 95
[2022-01-23] MEDS: ASPIRIN 81 MG CHEWABLE TABLET FEED TUBE (10:40)
[2022-01-23] MEDS: FUROSEMIDE 20 MG TABLET FEED TUBE (10:41)
[2022-01-23] MEDS: HEPARIN SODIUM 5,000 UNITS/ML VIAL 5000 UNITS SUB-Q ×2 (10:41→21:49)
--- NOTE | 2022-01-23 11:19 | PM.IMHP ---
H&P: HPI History of Present Illness Date/Time: 01/23/22 11:19 Chief Complaint: Aspiration , Placement Narrative: This is a frail 81-year-old female was transferred here for our plan fill in a as she was just released from the care home last night and 5 days ago according to family. Patient with vomiting and G-tube feeding as they said that they were not made aware of how to give patient a feeding this started today they sent the patient in by ambulance patient is confused not able to ambulate she does not have the wherein it is aware she is she may be alert to self. Patient has a history chronic kidney disease, diabetes, congestive heart failure, history of none aspiration pneumonia. Patient is a DNR she does not have a nebulizer at home Synvisc into her right upper she cared for by her daughter who has [id number] amputation should and she is wheelchair-bound and claims that she is unable to care for mom at this time there are lot like to consider physical therapy for the mom. Will have them evaluate to see if she qualifies. Spoke with Patient daughter who is Negra MATAMOROS states patent is a DNR and she is planning on taking her home unless she is able to complete therapy. I informed daughter that cognitively she is unable to follow direction. Patient family said that they would not want her to go to care home unless she is doing therapy I swann have PT evaluate patient to see if she even qualifies Review of Systems Review of Systems: weakness, dementia, All systems reviewed & are unremarkable except as noted in HPI and below PMFSH Past Medical History Medical History Anemia Aphasia as late effect of cerebrovascular accident CAD (coronary artery disease) Cardiac defibrillator in place Chronic kidney disease Compression fx, thoracic spine Congestive heart failure DM2 (diabetes mellitus, type 2) Hyperlipidemia Hypertension Surgical History Surgical History H/O heart artery stent Family History Family History Unknown Unknown family medical history Social History Social History Social History: according to the patient's face sheet she is retired. She has 2 daughters listed under her contacts. She is from [facility]. Patient is listed as a full code. Smoking status: Unknown if ever smoked Alcohol intake: never Substance use: never Substance use type: does not use Spiritual care concerns: No Comments At time as signature, I have reviewed and agree with nursing past medical, social, surgical and family history. Please see nursing chart for further information. There is no relevant family history pertinent to the presenting complaint. Meds Home Medications and Allergies Home Medications Medication Instructions Recorded Confirmed Type albuterol sulfate 5 mg/mL(0.5 %) 5 mg inhalation Q4H PRN Shortness 02/03/21 01/22/22 History solution for nebulization Of Breath Or Wheezing aspirin 81 mg tablet,delayed 81 mg feeding tube DAILY 02/03/21 01/22/22 History release furosemide 20 mg tablet 20 mg feeding tube QMWF 02/03/21 01/22/22 History glipizide 5 mg tablet 5 mg feeding tube DAILY 01/22/22 01/22/22 History sertraline 25 mg tablet (Zoloft) 25 mg feeding tube HS 01/22/22 01/22/22 History lorazepam 0.5 mg tablet 0.5 mg feeding tube Q6H PRN 01/26/22 Rx Anxiety #30 tabs Allergies Allergy/AdvReac Type Severity Reaction Status Date / Time codeine Allergy Unknown Verified 02/03/21 13:37 hydrocodone Allergy Unknown Verified 02/03/21 13:37 morphine Allergy Unknown Verified 02/03/21 13:37 [id number]-[id number] Reductase Allergy Unknown Verified 02/03/21 13:37 Inhibitor Vital Signs Vital Signs - 24 hr 01/22/22 17:42 01/22/22 20:00 01/23/22 00
[2022-01-23 11:51] LABS: Glucose Point of Care 218 mg/dl (65-105)
[2022-01-23] MEDS: FERROUS SULFATE LIQUID 325 MG/7.4 ML ELIXIR FEED TUBE (14:45)
[2022-01-23 16:00] VITALS: BP 141/77; PULSE 81; RESP 22; TEMP 36.1; O2SAT 94
[2022-01-23 17:17] LABS: Glucose Point of Care 151 mg/dl (65-105)
[2022-01-23] MEDS: LORazepam INJ (*CRX) 2 MG/ML VIAL IV PUSH ×2 (18:13→23:35)
[2022-01-23] MEDS: MONTELUKAST SODIUM 10 MG TABLET FEED TUBE (21:50)
[2022-01-23] MEDS: SERTRALINE HCL 25 MG TABLET FEED TUBE (21:50)
[2022-01-23] MEDS: MELATONIN 3 MG TABLET FEED TUBE (21:50)
[2022-01-23 22:17] LABS: Glucose Point of Care 157 mg/dl (65-105)
--- NOTE | 2022-01-23 23:35 | PC.NURSE ---
Agitated and yelling continuously. Tried repositioning and talking with patient. Ativan given 2mg IVP per protocol for agitation.
[2022-01-24] VITALS: BP 112/65; PULSE 96; RESP 20; TEMP 36.4; O2SAT 97
--- NOTE | 2022-01-24 00:55 | PC.NURSE ---
Feeding Syringe changed. 30ml Residual of Tube Feeding. Tube Feeding given as ordered with 30ml flush before and after. Patient horace. well.
[2022-01-24 07:34] LABS: Glucose Point of Care 228 mg/dl (65-105)
[2022-01-24 08:00] VITALS: BP 108/67; PULSE 92; RESP 16; TEMP 36.4; O2SAT 96
[2022-01-24] MEDS: ASPIRIN 81 MG CHEWABLE TABLET FEED TUBE (08:16)
[2022-01-24] MEDS: HEPARIN SODIUM 5,000 UNITS/ML VIAL 5000 UNITS SUB-Q ×2 (08:17→20:33)
[2022-01-24 09:12] LABS: Basophils Absolute Auto 0.05 K/mm3 (0.00-0.10); Basophils Percent Auto 0.8 % (0.0-1.0); Eosinophils Absolute Auto 0.07 K/mm3 (0.02-0.50); Eosinophils Percent Auto 1.2 % (1.0-6.0); Hematocrit 34.9 % (35.0-42.0); Hemoglobin 11.2 g/dL (11.7-13.8); Immature Granulocyte Absolute 0.03 K/mm3 (0.00-0.00); Immature Granulocyte Percent A 0.5 % (0.0-0.0); Lymphocytes Absolute Auto 1.08 K/mm3 (1.10-4.50); Lymphocytes Percent Auto 18.2 % (18.0-42.0); Mean Corpuscular HGB Conc 32.1 g/dL (32.0-36.0); Mean Corpuscular Hemoglobin 33.8 pg (27.0-31.0); Mean Corpuscular Volume 105.4 fL (78.0-102.0); Mean Platelet Volume 10.5 fl (9.2-11.8); Monocytes Absolute Auto 0.59 K/mm3 (0.10-0.90); Monocytes Percent Auto 9.9 % (2.0-11.0); Neutrophils Absolute Auto 4.1 K/mm3 (1.7-7.2); Neutrophils Percent Auto 69.4 % (50.0-70.0); Platelet Count Result 179 K/mm3 (150-420); Red Blood Count 3.31 M/mm3 (4.20-5.40); Red Cell Distribution Width 14.8 % (11.6-14.4); White Blood Count 5.9 K/mm3 (4.8-10.8)
[2022-01-24 09:35] LABS: Anion Gap 6 mmol/L (8-16); Blood Urea Nitrogen 52 mg/dL (7-18); Calcium 8.5 mg/dL (8.5-10.1); Carbon Dioxide 30 mmol/L (21-32); Chloride 102 mmol/L (98-108); Estimated CRCL calculation 21 ml/min; Estimated Glomerular Filt Rate 33; Glucose 212 mg/dL (70-99); NT Pro B Type Natriuretic Pept 30128 pg/mL (0-450); Osmolality Calculated 306 mOsm/kg (285-295); Sodium 138 mmol/L (136-145)
[2022-01-24] MEDS: LORazepam INJ (*CRX) 2 MG/ML VIAL IV PUSH ×2 (10:08→20:33)
--- NOTE | 2022-01-24 10:27 | WPDPN ---
Progress Note: A&P Assessment and Plan (1) Volume overload: Code(s): E87.70 - Fluid overload, unspecified Status: Acute Assessment and Plan: IV lasix monitor intake and out put monitor tube feeding (2) Aphasia as late effect of cerebrovascular accident: Code(s): I69.320 - Aphasia following cerebral infarction Status: Acute Assessment and Plan: G- tube feeding head of bed elevated at all times [id number] a days monitor for residual (3) Community acquired pneumonia: Code(s): J18.9 - Pneumonia, unspecified organism Status: Acute Assessment and Plan: IV antibiotics moniotr labs (4) N&V (nausea and vomiting): Qualifiers: Vomiting type: unspecified Qualified Code(s): R11.2 - Nausea with vomiting, unspecified Code(s): R11.2 - Nausea with vomiting, unspecified Status: Acute Assessment and Plan: Keep head of the bed elevated monitor for s/s (5) Aspiration into respiratory tract: Qualifiers: Encounter type: initial encounter Qualified Code(s): T17.908A - Unspecified foreign body in respiratory tract, part unspecified causing other injury, initial encounter Code(s): T17.908A - Unspecified foreign body in respiratory tract, part unspecified causing other injury, initial encounter Status: Acute Assessment and Plan: Keep head of the bed elevated (6) Hypertension: Code(s): I10 - Essential (primary) hypertension Status: Chronic Assessment and Plan: monitor vitals give [id number] as directed change medication as indicated (7) Aspiration pneumonia: Code(s): J69.0 - Pneumonitis due to inhalation of food and vomit Status: Acute Plan monitor for any s/s for aspiration head of the bed elevated at all time. Subjective Date/time seen: 01/24/22 10:27 Interval history: Patient is laying in the bed screaming out at time. She requires total assistance. Patient family has accepted Hospice and she will go with CHF. I will continue to attempt to Diurese patient at this time . Patient is swollen in the extremities we will monitor elctrolytes. Exam Narrative: GENERAL:ILLappearing, well-nourished, and in no acute distress. HEAD:Normocephalic, atraumatic. EYES: PERRLA and EOMI. ENT: Nares clear, no rhinorrhea or epistaxis. Mucous membranes moist. CHEST: diminshed to auscultation. No respiratory distress. HEART: Regular rate and rhythm.decreased peripheral pulses. ABDOMEN: Soft, nontender, nondistended, Gtube in place normal active bowel sounds. EXTREMITIES: Normal range of motion. 2-3 + pitting edema on bilateral legs and arms. SKIN: Warm, dry, no rash. NEURO: No focal deficits. Alert to self screams majority of the time. Objective Data Vital Signs Vital Signs: Vital Signs - 24 hr 01/23/22 16:00 01/24/22 00:00 01/24/22 08:00 Temperature 97 F L 97.5 F L 97.6 F Pulse Rate 81 96 92 Respiratory Rate 22 H 20 16 Blood Pressure 141/77 H 112/65 108/67 Pulse Oximetry 94 97 96 Oxygen Delivery Room Air Room Air Room Air Intake/Output Intake/Output: Intake & Output 01/21/22 01/22/22 01/23/22 01/24/22 23:59 23:59 23:59 23:59 Intake Total 2310 600 Output Total 1075 400 Balance 1235 200 Meds/Results Medications: Active Medications Generic Name Dose Route Start Last Admin Trade Name Freq PRN Reason Stop Dose Admin Acetaminophen 650 mg 01/22/22 19:43 01/23/22 17:17 Acetaminophen 325 Mg Tablet FEED TUBE 650 mg Q4H PRN Administration Mild Pain (1-3) or Fever Albuterol 5 mg 01/23/22 01:14 Albuterol Sulfate Neb 2.5 Mg/3 Ml Inh INHALATION Q4H PRN Shortness Of Breath Or Wheezin Aspirin 81 mg 01/23/22 09:00 01/24/22 08:16 Aspirin 81 Mg Chewable Tablet FEED TUBE 81 mg DAILY PAYTON Administration Dextrose 12.5 gm 01/23/22 01:17 Dextrose 50% 25 Gm/50 Ml Syringe IV PUSH PRN PRN Hypoglyce
--- NOTE | 2022-01-24 11:18 | PC.NURSE ---
paperwork filled out and faxed to [employer]. kitchen aware.
[2022-01-24 11:49] LABS: Glucose Point of Care 118 mg/dl (65-105)
--- NOTE | 2022-01-24 15:01 | PC.NURSE ---
jewel diameter gauger aware again about tube feeding being only 60ml 5x's daily. family claims she was taking entire can 5x's daily of jevity 1.2 with a flush of 120ml. new orders rec'd
[2022-01-24 16:00] VITALS: BP 123/73; PULSE 95; RESP 16; TEMP 36.4; O2SAT 96
[2022-01-24 16:39] LABS: Glucose Point of Care 191 mg/dl (65-105)
[2022-01-24] MEDS: FUROSEMIDE INJ 40 MG/4 ML VIAL IV PUSH (17:33)
[2022-01-24 19:43] VITALS: PULSE 95; RESP 16; O2SAT 96
[2022-01-24] MEDS: MONTELUKAST SODIUM 10 MG TABLET FEED TUBE (20:33)
[2022-01-24] MEDS: MELATONIN 3 MG TABLET FEED TUBE (20:33)
[2022-01-24] MEDS: ACETAMINOPHEN 325 MG TABLET 650 MG FEED TUBE (20:33)
[2022-01-24 20:48] LABS: Glucose Point of Care 161 mg/dl (65-105)
[2022-01-25] VITALS: BP 115/76; PULSE 94; RESP 18; TEMP 36.3; O2SAT 97
[2022-01-25 07:22] LABS: Anion Gap 8 mmol/L (8-16); Blood Urea Nitrogen 54 mg/dL (7-18); Calcium 8.5 mg/dL (8.5-10.1); Carbon Dioxide 29 mmol/L (21-32); Chloride 101 mmol/L (98-108); Estimated CRCL calculation 22 ml/min; Estimated Glomerular Filt Rate 35; Glucose 243 mg/dL (70-99); Osmolality Calculated 308 mOsm/kg (285-295); Potassium 5.4 mmol/L (3.5-5.1); Sodium 138 mmol/L (136-145)
[2022-01-25 07:49] LABS: Glucose Point of Care 221 mg/dl (65-105)
[2022-01-25 08:00] VITALS: BP 110/66; PULSE 89; RESP 16; TEMP 36.3; O2SAT 96
[2022-01-25] MEDS: HEPARIN SODIUM 5,000 UNITS/ML VIAL 5000 UNITS SUB-Q ×2 (08:14→20:49)
[2022-01-25] MEDS: FUROSEMIDE INJ 20 MG/2 ML VIAL IV PUSH (08:15)
[2022-01-25] MEDS: ASPIRIN 81 MG CHEWABLE TABLET FEED TUBE (08:15)
--- NOTE | 2022-01-25 10:31 | PM.IMPN ---
Progress Note: A&P Assessment and Plan (1) Volume overload: Code(s): E87.70 - Fluid overload, unspecified Status: Acute Assessment and Plan: IV lasix monitor intake and out put monitor tube feeding (2) Aphasia as late effect of cerebrovascular accident: Code(s): I69.320 - Aphasia following cerebral infarction Status: Acute Assessment and Plan: G- tube feeding head of bed elevated at all times [id number] a days monitor for residual (3) Community acquired pneumonia: Code(s): J18.9 - Pneumonia, unspecified organism Status: Acute Assessment and Plan: IV antibiotics moniotr labs (4) N&V (nausea and vomiting): Qualifiers: Vomiting type: unspecified Qualified Code(s): R11.2 - Nausea with vomiting, unspecified Code(s): R11.2 - Nausea with vomiting, unspecified Status: Acute Assessment and Plan: Keep head of the bed elevated monitor for s/s (5) Aspiration into respiratory tract: Qualifiers: Encounter type: initial encounter Qualified Code(s): T17.908A - Unspecified foreign body in respiratory tract, part unspecified causing other injury, initial encounter Code(s): T17.908A - Unspecified foreign body in respiratory tract, part unspecified causing other injury, initial encounter Status: Acute Assessment and Plan: Keep head of the bed elevated (6) Hypertension: Code(s): I10 - Essential (primary) hypertension Status: Chronic Assessment and Plan: monitor vitals give [id number] as directed change medication as indicated (7) Aspiration pneumonia: Code(s): J69.0 - Pneumonitis due to inhalation of food and vomit Status: Acute Plan monitor for any s/s for aspiration head of the bed elevated at all time. Subjective Date/time seen: 01/25/22 10:31 Interval history: Patient labs are trending down and she is resting well. Plan is for patient to go home home on hospice tomorrow we will continue to diuresis her are this time and see if we can remove some more fluids prior to dischrge as she is so swollen Exam Narrative: GENERAL:ILL appearing, well-nourished, and in no acute distress. HEAD:Normocephalic, atraumatic. EYES: PERRLA and EOMI. ENT: Nares clear, no rhinorrhea or epistaxis. Mucous membranes moist. CHEST: diminished to auscultation. No respiratory distress. HEART: Regular rate and rhythm.decreased peripheral pulses. ABDOMEN: Soft, nontender, nondistended, G-tube in place normal active bowel sounds. EXTREMITIES: Normal range of motion. 2-3 + pitting edema on bilateral legs and arms weaping SKIN: Warm, dry, no rash. NEURO: No focal deficits. Alert to self screams majority of the time. Objective Data Vital Signs Vital Signs: Vital Signs - 24 hr 01/24/22 16:00 01/24/22 19:43 01/25/22 00:00 Temperature 97.5 F L 97.3 F L Pulse Rate 95 95 94 Respiratory Rate 16 16 18 Blood Pressure 123/73 115/76 Pulse Oximetry 96 96 97 Oxygen Delivery Room Air Room Air Room Air 01/25/22 08:00 Temperature 97.4 F L Pulse Rate 89 Respiratory Rate 16 Blood Pressure 110/66 Pulse Oximetry 96 Oxygen Delivery Room Air Intake/Output Intake/Output: Intake & Output 01/22/22 01/23/22 01/24/22 01/25/22 23:59 23:59 23:59 23:59 Intake Total 2310 1077 1020 Output Total 0584 573 9680 Balance 1235 327 20 Meds/Results Medications: Active Medications Generic Name Dose Route Start Last Admin Trade Name Freq PRN Reason Stop Dose Admin Acetaminophen 650 mg 01/22/22 19:43 01/24/22 20:33 Acetaminophen 325 Mg Tablet FEED TUBE 650 mg Q4H PRN Administration Mild Pain (1-3) or Fever Albuterol 5 mg 01/23/22 01:14 Albuterol Sulfate Neb 2.5 Mg/3 Ml Inh INHALATION Q4H PRN Shortness Of Breath Or Wheezin Aspirin 81 mg 01/23/22 09:00 01/25/22 08:15 Aspirin 81 Mg Chewable Tablet FEED TUBE 81 mg DAILY PAYTON Admin
[2022-01-25 11:52] LABS: Glucose Point of Care 137 mg/dl (65-105)
[2022-01-25] MEDS: LORazepam INJ (*CRX) 2 MG/ML VIAL IV PUSH ×2 (13:57→20:49)
--- NOTE | 2022-01-25 13:58 | PC.NURSE ---
Patient lifting head off of pillow and yelling out. Appears uncomfortable PRN ativan given
--- NOTE | 2022-01-25 15:09 | PC.NURSE ---
Spoke with Shruthi at [facility] with update on patient's condition. Also asked if would be able to adjust ativan dose to what Hospice usually prescribes -0.5 mg tab. Charge nurse aware
[2022-01-25 16:00] VITALS: BP 110/59; PULSE 92; RESP 14; TEMP 36.4; O2SAT 92
[2022-01-25 16:55] LABS: Glucose Point of Care 218 mg/dl (65-105)
--- NOTE | 2022-01-25 19:25 | PC.NURSE ---
hospice called to check on patient. wants to make sure she pill form of ativan at discharge to put in tube. principal investigator aware.
[2022-01-25 20:00] VITALS: PULSE 92; RESP 14; O2SAT 92
[2022-01-25] MEDS: MELATONIN 3 MG TABLET FEED TUBE (20:49)
[2022-01-25] MEDS: ACETAMINOPHEN 325 MG TABLET 650 MG FEED TUBE (20:50)
[2022-01-25] MEDS: MONTELUKAST SODIUM 10 MG TABLET FEED TUBE (20:50)
[2022-01-25] MEDS: SERTRALINE HCL 25 MG TABLET FEED TUBE (20:59)
[2022-01-25 21:02] LABS: Glucose Point of Care 123 mg/dl (65-105)
[2022-01-26] VITALS: BP 122/68; PULSE 99; RESP 20; TEMP 36.3; O2SAT 97
[2022-01-26 07:32] LABS: Glucose Point of Care 253 mg/dl (65-105)
[2022-01-26 07:48] VITALS: BP 118/63; PULSE 98; RESP 18; TEMP 36.3; O2SAT 92
[2022-01-26] MEDS: FUROSEMIDE INJ 20 MG/2 ML VIAL IV PUSH (08:16)
[2022-01-26] MEDS: HEPARIN SODIUM 5,000 UNITS/ML VIAL 5000 UNITS SUB-Q (08:16)
[2022-01-26] MEDS: ASPIRIN 81 MG CHEWABLE TABLET FEED TUBE (08:16)
[2022-01-26] MEDS: FERROUS SULFATE LIQUID 325 MG/7.4 ML ELIXIR FEED TUBE (08:25)
--- NOTE | 2022-01-26 11:28 | PM.DS ---
DS: Admitting Diagnosis Discharge Date 01/26/2022 Admitting Diagnosis Aspiration Pneumonia, Congestive heart failure DS: Discharge Diagnosis Discharge Diagnosis (1) Volume overload: Code(s): E87.70 - Fluid overload, unspecified Status: Acute Assessment and Plan: IV lasix monitor intake and out put monitor tube feeding (2) Aphasia as late effect of cerebrovascular accident: Code(s): I69.320 - Aphasia following cerebral infarction Status: Acute Assessment and Plan: G- tube feeding head of bed elevated at all times [id number] a days monitor for residual (3) Community acquired pneumonia: Code(s): J18.9 - Pneumonia, unspecified organism Status: Acute Assessment and Plan: IV antibiotics moniotr labs (4) N&V (nausea and vomiting): Qualifiers: Vomiting type: unspecified Qualified Code(s): R11.2 - Nausea with vomiting, unspecified Code(s): R11.2 - Nausea with vomiting, unspecified Status: Acute Assessment and Plan: Keep head of the bed elevated monitor for s/s (5) Aspiration into respiratory tract: Qualifiers: Encounter type: initial encounter Qualified Code(s): T17.908A - Unspecified foreign body in respiratory tract, part unspecified causing other injury, initial encounter Code(s): T17.908A - Unspecified foreign body in respiratory tract, part unspecified causing other injury, initial encounter Status: Acute Assessment and Plan: Keep head of the bed elevated (6) Hypertension: Code(s): I10 - Essential (primary) hypertension Status: Chronic Assessment and Plan: monitor vitals give [id number] as directed change medication as indicated (7) Aspiration pneumonia: Code(s): J69.0 - Pneumonitis due to inhalation of food and vomit Status: Acute Plan monitor for any s/s for aspiration head of the bed elevated at all time. DS: Summary Hospital Course Reason for hospitalization: aspiration pneumonia, possible place Hospital Course: This is a frail 81-year-old female? Patient has a history chronic kidney disease, diabetes, congestive heart failure, history of none aspiration pneumonia.? Patient is a DNR she does have a nebulizer at home Skin tear into her right upper arm. she cared for by her daughter who has [id number] amputation should and she is wheelchair-bound and claims that she is unable to care for mom at this time there are lot like to consider? physical therapy for the mom.? patient dementia so far bed she does not qualify for physical therapy as she is not able to follow commands not aware of her surrounding patient is not truly responding to care she is in congestive heart failure family has chosen hospice she will at this time discharge [place] with their care Time Spent with Patient Time attestation: Total time spent providing and/or coordinating discharge services: Exam Narrative: GENERAL:ILL appearing, well-nourished, and in no acute distress. HEAD:Normocephalic, atraumatic. EYES: PERRLA and EOMI. ENT: Nares clear, no rhinorrhea or epistaxis. Mucous membranes moist. CHEST: diminished to auscultation. No respiratory distress. HEART: Regular rate and rhythm.decreased peripheral pulses. ABDOMEN: Soft, nontender, nondistended, G-tube in place normal active bowel sounds. EXTREMITIES: Normal range of motion. 2-3 + pitting edema on bilateral legs and arms weaping SKIN: Warm, dry, no rash. NEURO: No focal deficits. Alert to self screams majority of the time. DS: Data Data Completed and Pending Labs on day of discharge: Labs from last 24 hours 01/26/22 01/25/22 01/25/22 07:28 20:57 16:50 POC Capillary Glucose 253 H 123 H 218 H 01/25/22 11:47 POC Capillary Glucose 137 H Discharge Plan Discharge Attending physician on discharge: Ramesh Godfrey Consulting providers: Morteza Mckeon
[2022-01-26 11:37] LABS: Glucose Point of Care 188 mg/dl (65-105)
--- NOTE | 2022-01-26 11:50 | PC.NURSE ---
Patient picked up for transfer to daughter's home by [facility]. Paperwork given to bobtail driver. IV removed intact. Field catheter left in place per hospice. Hospice and family notified.
--- NOTE | 2022-01-29 11:20 | PC.NURSE ---
Unable to contact for discharge call back.
== END 2022-01-26 11:45 | disposition hospice, home (50) ==
PROVIDERS: Nurse Practitioner Family; Admitting Provider Internal Medicine; Visit Provider Internal Medicine
DX: I13.0 Hypertensive heart and chronic kidney disease with heart failure and stage 1 through stage 4 chronic kidney disease, or unspecified chronic kidney disease (principal); I50.9 Heart failure, unspecified; J69.0 Pneumonitis due to inhalation of food and vomit; N18.9 Chronic kidney disease, unspecified; I69.320 Aphasia following cerebral infarction; I25.10 Atherosclerotic heart disease of native coronary artery without angina pectoris; E11.22 Type 2 diabetes mellitus with diabetic chronic kidney disease; E78.5 Hyperlipidemia, unspecified; Z95.5 Presence of coronary angioplasty implant and graft; Z95.810 Presence of automatic (implantable) cardiac defibrillator; Z93.1 Gastrostomy status; Z51.5 Encounter for palliative care; Z66 Do not resuscitate
CPT/HCPCS: 36415; 71045; 80048; 82948; 83880; 85025; 85027; 96372; 96374; 96375; 96376; 97162; 97166; A9270; G0378; G0379; J1644; J1815; J1940; J2060